=== PATIENT | female | born 1945 | race American Indian/Alaskan Native ===

== ENCOUNTER 2019-09-13 21:11 | Emergency (ER) | payer MEDICARE, SELFPAY ==
[2019-09-13 21:16] VITALS: BP 167/66; PULSE 58; RESP 13; TEMP 36.7; O2SAT 98
--- NOTE | 2019-09-13 21:27 | ED.GENADULT ---
HPI - General Adult General Chief complaint: Unspecified Stated complaint: ams Time Seen by Provider: 09/13/19 21:14 History of Present Illness HPI narrative: Brought in by EMS [facility] for altered mental status. She reportedly had an episode where she was difficult to arouse. Staff became concerned and called EMS. When they arrived she was initially lethargic, but quickly returned to baseline. On my evaluation she has no complaints. History limited by dementia. oriented x1. Related Data Home Medications Medication Instructions Recorded Confirmed acetaminophen 500 mg capsule 500 mg PO Q6H PRN 05/21/19 alendronate 70 mg tablet 70 mg PO .COMPLEX 05/21/19 aspirin 81 mg tablet,delayed 81 mg PO DAILY 05/21/19 release cholecalciferol (vitamin D3) 50 50 mcg PO DAILY 05/21/19 mcg (2,000 unit) capsule citalopram 20 mg tablet 20 mg PO DAILY 05/21/19 clopidogrel 75 mg tablet 75 mg PO .COMPLEX 05/21/19 docusate sodium 100 mg capsule 100 mg PO BID PRN 05/21/19 famotidine 20 mg tablet 20 mg PO .COMPLEX 05/21/19 ferrous sulfate 325 mg (65 mg 325 mg PO .COMPLEX 05/21/19 iron) tablet folic acid 1 mg tablet 1 mg PO .COMPLEX 05/21/19 guaifenesin 600 mg tablet, 600 mg PO BID 05/21/19 extended release 12 hr hydroxyzine pamoate 25 mg capsule See Rx Instructions .ROUTE 05/21/19 .COMPLEX PRN loratadine 10 mg tablet 10 mg PO .COMPLEX 05/21/19 melatonin 5 mg tablet See Rx Instructions .ROUTE .COMPLEX 05/21/19 memantine 10 mg tablet See Rx Instructions PO BID 05/21/19 multivitamin-iron 27 mg-folic acid See Rx Instructions PO .COMPLEX 05/21/19 400 mcg-calcium and minerals tablet tablet olanzapine 5 mg tablet 5 mg PO .COMPLEX 05/21/19 oxybutynin chloride 10 mg 10 mg PO .COMPLEX 05/21/19 tablet,extended release 24 hr rivastigmine tartrate 6 mg capsule 6 mg PO .COMPLEX 05/21/19 Allergies Allergy/AdvReac Type Severity Reaction Status Date / Time No Known Allergies Allergy Unverified 08/03/18 20:41 Review of Systems Review of Systems: ROS unobtainable: Yes unobtainable due to mental status PMFSH Past Medical History Medical History Depression HTN (hypertension) Hyperlipidemia Social History Social History Smoking status: Never smoker Alcohol intake: never Exam Const: General: no acute distress and alert Nutritional Appearance: well nourished Other: Oriented to self HENMT: Head: normal to inspection Eyes: Pupils: Equal, round and reactive pupils present Resp: Effort & Inspection: normal respiratory effort Auscultation: clear to auscultation bilaterally Cardio: Rate: regular rate Rhythm: regular rhythm GI: GI Palp: Yes Soft to palpation and No Tenderness to palpation present (GI) Skin: General skin exam: normal color Neuro: General: moves all extremities and CN's II-XI intact bilaterally Speech: normal speech Course Vital Signs Vital signs: Vital Signs Temperature 36.7 C 09/13/19 21:16 Pulse Rate 58 L 09/13/19 21:16 Respiratory Rate 13 09/13/19 21:16 Blood Pressure 167/66 H 09/13/19 21:16 Pulse Oximetry 98 09/13/19 21:16 Temperature 36.7 C 09/13/19 21:16 Pulse Rate 58 L 09/13/19 21:16 Respiratory Rate 13 09/13/19 21:16 Blood Pressure 167/66 H 09/13/19 21:16 Pulse Oximetry 98 09/13/19 21:16 Medical Decision Making MDM Narrative Medical decision making narrative: Currently she seems to be at her baseline without complaint. UA concerning for infection. Will start Cipro. Medical Records Medical records reviewed: Yes I reviewed the patient's medical records. Vital Signs Vital Signs: Vital Signs Temperature 36.7 C 09/13/19 21:16 Pulse Rate 58 L 09/13/19 21:16 Respiratory Rate 13 09/13/19 21:16 Blood Pressure 167/66 H 09/13/19 21:16 Pulse Oximetry 98 09/13/19 21:16 Temperature 36.7 C 09/13/19 21:16
[2019-09-13 23:06] LABS: Add Urine Microscopic? YES; Appearance Urine Clear (Clear); Bacteria Urine Trace /hpf; Bilirubin Urine Negative (Negative); Blood Urine Negative (Negative); Color Urine Yellow (Yellow); Glucose Urine UA Negative (Negative); Ketones Urine Negative (Negative); Leukocyte Esterase Ur 1+ LEU/UL (Negative); Mucus Urine Rare /lpf; Nitrate Urine Negative (Negative); Protein Urine Negative (Negative); Specific Grav Ur 1.016 (1.001-1.035); Urobilinogen Urine Negative mg/dL (<2.0)
[2019-09-14] MEDS: CIPROFLOXACIN 500 MG TAB PO (00:09)
--- NOTE | 2019-09-14 01:42 | PC.NURSE ---
[facility] accepted transfer back to [place] ETA [id number]
--- NOTE | 2019-09-14 01:48 | PC.NURSE ---
Pt assisted to wheelchair and moved rooms to make sure the sitter here would be able to watch her. Pt now in rm 9
--- NOTE | 2019-09-14 03:02 | PC.NURSE ---
[facility] has arrived to Transfer pt back to [place]
== END 2019-09-14 03:11 ==
PROVIDERS: Emergency Provider Emergency Medicine; PCP Emergency Medicine
DX: N39.0 Urinary tract infection, site not specified (principal); Z79.82 Long term (current) use of aspirin; F32.9 Major depressive disorder, single episode, unspecified; I10 Essential (primary) hypertension; E78.5 Hyperlipidemia, unspecified
CPT/HCPCS: 51701; 81001; 87077; 87086; 87088; 87186; 99283; A9270

== ENCOUNTER 2020-10-22 15:12 | Outpatient (CLI) | payer MEDICARE, SELFPAY ==
[2020-10-22 15:34] LABS: Basophils Absolute Auto 0.1 K/mm3 (0.0-0.1); Basophils Percent Auto 0.9 % (0.2-1.2); Eosinophils Absolute Auto 0.2 K/mm3 (0-0.3); Eosinophils Percent Auto 3.2 % (0-4.4); Hematocrit 36.7 % (37.0-47.0); Hemoglobin 11.7 g/dL (12.0-15.0); Immature Granulocyte Absolute 0.02 K/mm3 (0.00-0.031); Immature Granulocyte Percent A 0.3 % (0-0.5); Lymphocytes Absolute Auto 1.15 K/mm3 (0.9-3.2); Lymphocytes Percent Auto 18.2 % (18.3-44.2); Mean Corpuscular HGB Conc 31.9 g/dl (32-36); Mean Corpuscular Hemoglobin 29.7 pg (26-34); Mean Corpuscular Volume 93.1 fl (80-100); Mean Platelet Volume 9.9 fl (7.4-10.4); Monocytes Absolute Auto 0.4 K/mm3 (0.1-0.6); Monocytes Percent Auto 6.8 % (2.6-8.5); Neutrophils Absolute Auto 4.5 K/mm3 (1.3-6.7); Neutrophils Percent Auto 70.6 % (45.5-73.1); Platelet Count Result 736 k/mm3 (150-375); Red Blood Count 3.94 M/mm3 (4.2-5.4); White Blood Count 6.3 K/mm3 (4.5-10.0)
[2020-10-22 15:46] LABS: Alanine Aminotransferase 18 U/L (4-35); Albumin Level 4.3 g/dL (3.5-5.1); Alkaline Phosphatase 80 U/L (38-126); Anion Gap 9 mmol/L (8-16); Aspartate Amino Transferase 31 U/L (14-36); Bilirubin,Total 0.5 mg/dL (0.2-1.3); Blood Urea Nitrogen 30 mg/dL (7-17); CRP < 0.5 mg/dL (<1.0); Carbon Dioxide 28 mmol/L (22-30); Chloride 105 mmol/L (98-107); Estimated Glomerular Filt Rate > 60; Glucose 116 mg/dL (65-110); Sodium 142 mmol/L (137-145)
[2020-10-22 16:14] LABS: Iron 40 ug/dL (37-170)
[2020-10-22 16:21] LABS: Erythrocyte Sedimentation Rate 3 mm/hr (0-20)
[2020-10-22 16:24] LABS: Percent Iron Saturation 15 % (20-50)
[2020-10-29 16:00] LABS: CALR Exon 9 Mutation Not Detected (Not Detected); CSF3R Exon 14/17 Mutation Not Detected (Not Detected); Clinical Indication Not Given; JAK2 Exon 12 Mutation Not Detected (Not Detected); JAK2 V617F Mutation Not Detected (Not Detected); MPL Exon 10 Mutation Not Detected (Not Detected); Specimen Source Blood
== END 2020-10-22 15:13 | disposition home or self-care (01) ==
LOC: ANHLAB 15:16
PROVIDERS: PCP Emergency Medicine; Visit Provider Internal Medicine Hematology & Oncology
DX: R79.89 Other specified abnormal findings of blood chemistry (principal)
CPT/HCPCS: 36415; 80053; 81219; 81270; 81402; 81403; 81479; 83540; 83550; 85025; 85652; 86140

== ENCOUNTER 2021-02-03 13:45 | Outpatient (CLI) | payer MEDICARE, SELFPAY ==
[2021-02-03 14:12] LABS: Basophils Absolute Auto 0.1 K/mm3 (0.0-0.1); Basophils Percent Auto 0.8 % (0.2-1.2); Eosinophils Absolute Auto 0.2 K/mm3 (0-0.3); Eosinophils Percent Auto 2.3 % (0-4.4); Hematocrit 34.7 % (37.0-47.0); Hemoglobin 10.6 g/dL (12.0-15.0); Immature Granulocyte Absolute 0.02 K/mm3 (0.00-0.031); Immature Granulocyte Percent A 0.3 % (0-0.5); Lymphocytes Percent Auto 15.4 % (18.3-44.2); Mean Corpuscular HGB Conc 30.5 g/dl (32-36); Mean Corpuscular Hemoglobin 29.4 pg (26-34); Mean Corpuscular Volume 96.4 fl (80-100); Mean Platelet Volume 9.8 fl (7.4-10.4); Monocytes Absolute Auto 0.4 K/mm3 (0.1-0.6); Monocytes Percent Auto 6.3 % (2.6-8.5); Neutrophils Absolute Auto 4.9 K/mm3 (1.3-6.7); Neutrophils Percent Auto 74.9 % (45.5-73.1); Platelet Count Result 818 k/mm3 (150-375); Red Cell Distribution Width 13.5 % (11.5-14.5); White Blood Count 6.5 K/mm3 (4.5-10.0)
[2021-02-03 14:16] LABS: Blood Urea Nitrogen 23 mg/dL (8-26); Carbon Dioxide 27 mmol/L (22-30); Chloride 102 mmol/L (98-109); Estimated Glomerular Filt Rate 54; Glucose 167 mg/dL (70-105); Potassium 4.4 mmol/L (3.5-4.9); Sodium 141 mmol/L (138-146)
[2021-02-03 15:47] LABS: Erythrocyte Sedimentation Rate 5 mm/hr (0-20)
[2021-02-03 16:21] LABS: Iron 56 ug/dL (37-170)
[2021-02-03 16:25] LABS: Alanine Aminotransferase 15 U/L (4-35); Albumin Level 4.1 g/dL (3.5-5.1); Alkaline Phosphatase 62 U/L (38-126); Anion Gap 8 mmol/L (8-16); Aspartate Amino Transferase 30 U/L (14-36); Bilirubin,Total 0.4 mg/dL (0.2-1.3); Blood Urea Nitrogen 23 mg/dL (7-17); CRP < 0.5 mg/dL (<1.0); Calcium 8.9 mg/dL (8.4-10.2); Carbon Dioxide 27 mmol/L (22-30); Chloride 105 mmol/L (98-107); Estimated Glomerular Filt Rate > 60; Glucose 158 mg/dL (65-110); Potassium 4.4 mmol/L (3.4-5.0); Sodium 140 mmol/L (137-145)
[2021-02-03 16:34] LABS: Percent Iron Saturation 18 % (20-50)
== END 2021-02-03 13:46 | disposition home or self-care (01) ==
LOC: ANHLAB 13:48
PROVIDERS: PCP Emergency Medicine; Visit Provider Internal Medicine Hematology & Oncology
DX: D75.838 Other thrombocytosis (principal); D50.9 Iron deficiency anemia, unspecified
CPT/HCPCS: 36415; 80048; 80053; 83540; 83550; 85025; 85652; 86140

== ENCOUNTER 2021-04-04 08:30 | Inpatient (IN) | payer MEDICARE, SELFPAY ==
--- NOTE | ~2021-04-04 | CT_ITS ---
EXAMINATION: CT pelvis wo con DATE: 04/04/2021 10:27 INDICATION: Right hip pain. TECHNIQUE: Computed tomography (CT) of the pelvis was performed without intravenous contrast. Automat ed exposure control and iterative reconstruction technique were employed. The dose-length product was 189.89 mGy-cm. COMPARISON: Pelvis and right hip radiographs 04/04/2021 FINDINGS: There is a 7.6 x 5.0 x 4.0 cm multiloculated cystic mass posterior to the uterus with invol vement of the myometrium. Bone alignment is normal. No acute fracture. There is an old healed fractur e of left femoral neck with fixation with 3 lag screws. There is osteonecrosis of left femoral head. There is moderate osteoarthritis of right hip and severe osteoarthritis of left hip. There are sclero tic lesions in the pelvis and proximal right femur, likely benign bone islands. There is enlargement of the right gluteus praveen muscle with surrounding fat stranding, consistent with hematoma. IMPRESSION: 1. Hematoma in the right gluteus praveen muscle. 2. Sclerotic lesions in the pelvis and proximal right femur, likely benign bone islands. 3. Left femoral head osteonecrosis status post healed femoral neck fracture with internal fixation. 4. Moderate osteoarthritis of right hip and severe osteoarthritis of left hip. 5. 7.6 cm multiloculated cystic mass centered posterior to the uterus with apparent involvement of th e myometrium. The differential diagnosis includes ovarian neoplasm, degenerated fibroid, and chronic hematoma. Pelvis MRI without and with contrast is recommended. Reviewed, dictated and finalized at location A. PHOTOGRAPHY SUPERVISOR IMPRESSION: 1. Hematoma in the right gluteus praveen muscle. 2. Sclerotic lesions in the pelvis and proximal right femur, likely benign bone islands. 3. Left femoral head osteonecrosis status post healed femoral neck fracture wit h internal fixation. 4. Moderate osteoarthritis of right hip and severe osteoarthritis of left hip. 5. 7.6 cm multiloculated cystic mass centered posterior to the uterus with appa rent involvement of the myometrium. The differential diagnosis includes ovarian neoplasm, degenerated fibroid, and chronic hematoma. Pelvis MRI without and wi th contrast is recommended.
--- NOTE | ~2021-04-04 | CT_ITS ---
EXAMINATION: CT brain wo con DATE: 04/04/2021 12:22 INDICATION: Fall. TECHNIQUE: Computed tomography (CT) of the head was performed without intravenous contrast. The mA wa s adjusted according to patient size. Iterative reconstruction technique was employed. The dose-lengt h product was 605.33 mGy-cm. COMPARISON: Head CT 08/05/2018 FINDINGS: There is a large area of chronic encephalomalacia involving left temporal parietal occipita l region. There is an old infarct in right frontal lobe. There are scattered areas of low attenuation in the cerebral white matter. There is no intracranial hemorrhage, acute infarction, or abnormal int racranial mass lesion. There is ex vacuo dilatation of trigone and occipital horn of left lateral oc tricle. The orbits are normal. There is mucosal thickening in the paranasal sinuses. The mastoid air cells are normal. There is a chronic deformity of the left nasal process of maxilla. IMPRESSION: 1. 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 Old infarct in left temporal parietal occipital region. 2. Stable extensive nonspecific cerebral white matter disease, which likely represents chronic small vessel ischemic disease. Reviewed, dictated and finalized at location A. SCHOOL FRENCH TEACHER IMPRESSION: 1. 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 Old infarct in left temporal parietal occ ipital region. 2. Stable extensive nonspecific cerebral white matter disease, which likely rep resents chronic small vessel ischemic disease.
--- NOTE | ~2021-04-04 | XR_ITS ---
EXAMINATION: XR femur RT min 2V DATE: 04/04/2021 08:58 INDICATION: Right thigh pain. Fall. TECHNIQUE: 2 views of right femur on 4 radiographs were obtained. COMPARISON: None. FINDINGS: Bone alignment is normal. No fracture. There is mild right knee osteoarthritis. There is mo derate right hip osteoarthritis. There is a 1.6 cm chronic lesion in intertrochanteric region of prox imal right femur. IMPRESSION: 1. No fracture. 2. Sclerotic lesion in proximal right femur, which may be a benign bone island or metastatic disease. Consider bone scan. 3. Polyarticular osteoarthritis. Reviewed, dictated and finalized at location A. REPAIRMAN
--- NOTE | ~2021-04-04 | XR_ITS ---
EXAMINATION: XR hip RT 2V w AP pelvis DATE: 04/04/2021 08:58 INDICATION: Right hip pain. Fall. TECHNIQUE: An anteroposterior view of the pelvis and 2 views of right hip were obtained. COMPARISON: None. FINDINGS: There is lumbar levoscoliosis and severe spondylosis. There is an old healed fracture of le ft femoral neck with internal fixation with 3 lag screws. There is a 1.8 cm sclerotic lesion in the i ntertrochanteric region of proximal right femur. There is a 6 mm sclerotic lesion in left ilium. Ther e is moderate osteoarthritis of the hips. IMPRESSION: 1. Moderate osteoarthritis of the hips. 2. Sclerotic lesions in right femur and left ilium, consistent with benign bone islands versus metast atic disease. Consider bone scan. Reviewed, dictated and finalized at location A. IRONER IMPRESSION: 1. Moderate osteoarthritis of the hips. 2. Sclerotic lesions in right femur and left ilium, consistent with benign bone islands versus metastatic disease. Consider bone scan.
--- NOTE | ~2021-04-04 | XR_ITS ---
EXAMINATION: XR tibia fibula RT 2V DATE: 04/04/2021 10:10 INDICATION: Right lower leg injury. TECHNIQUE: 2 views of right tibia and fibula on 3 radiographs were obtained. COMPARISON: None. FINDINGS: Bone alignment is normal. There is an old healed fracture of neck of proximal fibula. There is a nondisplaced fracture of proximal tip of fibula. Joint spaces are normal. There is lateral calf and thigh soft tissue swelling. IMPRESSION: 1. Age-indeterminate nondisplaced fracture of proximal tip of fibula. Reviewed, dictated and finalized at location A. CE RECORDS CLERK
[2021-04-04 08:29] VITALS: BP 118/58; PULSE 91; RESP 18; TEMP 36.7; O2SAT 96
[2021-04-04 09:27] VITALS: BP 116/72; PULSE 87; RESP 18; O2SAT 97
[2021-04-04 11:14] VITALS: BP 98/55; PULSE 78; RESP 18; O2SAT 99
--- NOTE | 2021-04-04 12:06 | ED.LOWEXIN ---
HPI - Extremity Injury (Lower) General Chief Complaint: Extremity Injury, Lower Stated Complaint: fall Source: RN notes reviewed History of Present Illness HPI Narrative: Patient presents emergency department from [facility] via EMS for fall per staff the patient fell 2:00 this morning. Patient at that time had no complaints of pain with back to bed but this morning would not place weight on the right leg. Per the staff the patient did fall 4 days ago and this is why there is bruising on the right leg. Patient currently is awake alert x1 in bed which is at her baseline with history of dementia she denies any pain at this time at that she is able to move all of her extremities without pain she denies any chest pain or shortness of breath Related Data Home Medications Medication Instructions Recorded Confirmed acetaminophen 500 mg capsule 500 mg PO Q6H PRN 05/21/19 03/11/21 citalopram 20 mg tablet 20 mg PO DAILY 05/21/19 03/11/21 memantine 10 mg tablet See Rx Instructions PO BID 05/21/19 03/11/21 olanzapine 5 mg tablet 5 mg PO .COMPLEX 05/21/19 03/11/21 rivastigmine tartrate 6 mg capsule 6 mg PO .COMPLEX 05/21/19 03/11/21 allopurinol 300 mg tablet 150 mg PO DAILY 03/11/21 03/11/21 ascorbate calcium (vitamin C) 500 500 mg PO DAILY 03/11/21 03/11/21 mg tablet hydroxyurea 500 mg capsule 500 mg PO BID 03/11/21 03/11/21 hydroxyzine HCl 25 mg PO DAILY 04/04/21 Allergies Allergy/AdvReac Type Severity Reaction Status Date / Time No Known Allergies Allergy Verified 04/04/21 08:46 Review of Systems Review of Systems: Gen.: Denies fevers or chills ENT: Denies congestion Respiratory: Denies shortness of breath CV: Denies chest pain GI: Denies abdominal pain nausea, emesis Musculoskeletal: Denies back pain or muscle pain Neuro: Denies headache Skin: Denies rash Except as documented, all other systems reviewed and negative [facility] Past Medical History Medical History (Updated 04/04/21 @ 13:16 by Tony Cheng DO) Dementia Depression HTN (hypertension) Hyperlipidemia Social History Social History Smoking status: Never smoker Alcohol intake: never Exam Narrative: APPEARANCE: No acute distress, nontoxic, resting in bed EYES: EOMI HEENT: Normocephalic, atraumatic, OMM RESPIRATORY: No respiratory distress Clear to auscultation bilaterally with no rhonchi wheezing or rales. CARDIOVASCULAR: Regular rate and rhythm without murmurs rubs or gallops. ABDOMINAL: Soft, nontender, nondistended, no rebound or guarding MUSCULOSKELETAl: Moves all extremities. No clubbing, cyanosis or edema. Ecchymosis from the right buttocks down to the right calf over the lateral aspect of the leg, no tenderness over the right hip knee or ankle with full range of motion of all dorsalis pedis pulse 2+ neurovascular intact no tenderness of bilateral pressure in his left lower extremity NEURO: Awake and alert x 1. Following commands, speech normal, no focal deficits SKIN:: Warm, dry. No rashes lesions or abrasions PSYCHIATRIC: Normal affect/mood, Course Course Emergency Course: Attempted to road test patient will not place weight on right leg light additional imaging Discussed with Dr. Jacobson presentation work-up he states he placed a knee immobilizer on the patient she can be light weightbearing and walking with a walk Discussed with case management the patient is currently at [facility] care they are not able to handle as the patient is not placing in the right leg will admit with PT OT for possible placement Discussed with Dr. Oscar presentation work-up agrees with admission Discussed with patient and family results of workup and diagnosis. Discussed need for admission. Patient and family understand and agree to current treatment plan Vital Signs Vital signs: Vital Signs Temperature 98.1 F 04/04/21 08:29 Pulse Rate 91 04/04/21 08:29 Respiratory Rate 18 04/04/21 08:29 Blood Pre
[2021-04-04 12:22] LABS: Basophils Percent Auto 0.1 % (0.2-1.2); Hematocrit 26.7 % (37.0-47.0); Hemoglobin 8.6 g/dL (12.0-15.0); Immature Granulocyte Absolute 0.09 K/mm3 (0.00-0.031); Immature Granulocyte Percent A 1.1 % (0-0.5); Lymphocytes Percent Auto 8.3 % (18.3-44.2); Mean Corpuscular HGB Conc 32.2 g/dl (32-36); Mean Corpuscular Hemoglobin 31.6 pg (26-34); Mean Corpuscular Volume 98.2 fl (80-100); Mean Platelet Volume 9.5 fl (7.4-10.4); Monocytes Absolute Auto 0.6 K/mm3 (0.1-0.6); Monocytes Percent Auto 6.6 % (2.6-8.5); Neutrophils Absolute Auto 7.1 K/mm3 (1.3-6.7); Neutrophils Percent Auto 83.9 % (45.5-73.1); Platelet Count Result 682 k/mm3 (150-375); Red Blood Count 2.72 M/mm3 (4.2-5.4); Red Cell Distribution Width 18.5 % (11.5-14.5); White Blood Count 8.5 K/mm3 (4.5-10.0)
[2021-04-04 12:31] LABS: Alanine Aminotransferase 20 U/L (4-35); Albumin Level 3.5 g/dL (3.5-5.1); Alkaline Phosphatase 61 U/L (38-126); Anion Gap 5 mmol/L (8-16); Aspartate Amino Transferase 47 U/L (14-36); Bilirubin,Total 0.7 mg/dL (0.2-1.3); Blood Urea Nitrogen 30 mg/dL (7-17); Calcium 8.2 mg/dL (8.4-10.2); Carbon Dioxide 29 mmol/L (22-30); Chloride 102 mmol/L (98-107); Estimated CRCL calculation 42 ml/min; Estimated Glomerular Filt Rate > 60; Glucose 123 mg/dL (65-110); Potassium 4.1 mmol/L (3.4-5.0); Sodium 136 mmol/L (137-145)
[2021-04-04 12:33] LABS: INR 1.3; Partial Thromboplastin Time 30.3 SECONDS (22.3-36.8); Prothrombin Time 15.9 Seconds (11.1-14.7)
--- NOTE | 2021-04-04 13:44 | PCCCNOTE ---
Addendum entered by Stephanie Matias RN 04/04/21 17:04: Facesheet/ H[facility]P [facility], PT/OT evals will be sent to facilities once completed. Addendum entered by Stephanie Matias RN 04/04/21 16:51: Called to Legal Guardian/ POA Kailash Dixon, she is with [facility]- agreeable to SNF referrals for rehab. Patient is vaccinated and would like facilities that have the most vaccinated patients. Power Chisel Operator advises that some facilities are only taking patients that have had the vaccine. Kailash is agreeable to [facility] and [facility]. Out of local SNF's, guardian Kailash does not want patient to be referred to [facility]. Agreeable to [facility] at this time. OBRA request called. Referral sent to [place] kalyan Prajapati [facility]. Original Note: Called by ED to discuss contact and return to [facility]. Patient is non weight bearing with fibula fracture. Called to [facility], spoke with Michelle, per Michelle she can not be more than an assist of 1 to return. Spoke with ED provider Dr. Cheng, Dr. Cheng to admit for fracture PT/OT and rehab placement. Called back to Michelle and advised of admission.
--- NOTE | 2021-04-04 14:23 | PCPTNOTE ---
Spoke with MD regarding pt's status. Pt is WBAT with knee immobilizer. She will be admitted to a room. Therapy services will complete assessment once she is transfers to the floor.
--- NOTE | 2021-04-04 14:29 | PCOTNOTE ---
Spoke with MD regarding pt's status. Pt is WBAT with knee immobilizer. She will be admitted to a room. Therapy services will complete evaluation once she is transfers to the floor.
--- NOTE | 2021-04-04 14:45 | PM.IMHP ---
H&P: HPI History of Present Illness Date/Time: 04/04/21 14:45 Chief Complaint: Lower extremity injury Narrative: Chelsea Palomino is a 75 year old lady with a past medical history significant for HTN, HLD and dementia who has been admitted after presenting to the ED via EMS from a memory care center. The patient is a poor historian, thus history obtained per chart review and ED physician report. Apparently she sustain a fall early this morning around 0200. She had no significant complaints of pain and went back to bed. When awakened this morning, she was unable to bear weight on her right lower extremity per nursing staff. Nursing staff also reported a fall 4 days ago with noted bruising extending from lateral side of right thigh to the calf. The patient appeared comfortable during exam and moves all extremities. ED evaluation included and revealed: Na+ 136; BUN 30; BG 123; H/H 8.6/26.7; PLT 682. Head CT with no acute findings; pelvic CT showed a right gluteus hematoma; moderate OA of right hip and severe OA of left hip. Incidental finding-->5. 7.6 cm multiloculated cystic mass centered posterior to the uterus with apparent involvement of the myometrium. The differential diagnosis includes ovarian neoplasm, degenerated fibroid, and chronic hematoma. Pelvis MRI without and with contrast is recommended. Dr. Sheth was contacted and recommended a knee immobilizer; light weight bearing with a walker and no surgical intervention. She will need PT/OT and rehab placement. The patient has been admitted to observation status. Review of Systems Review of Systems: ROS unobtainable: Yes unobtainable due to mental status PMFSH Past Medical History Medical History Dementia Depression HTN (hypertension) Hyperlipidemia Social History Social History Smoking status: Never smoker Alcohol intake: never Meds Home Medications and Allergies Home Medications Medication Instructions Recorded Confirmed Type acetaminophen 500 mg capsule 500 mg PO Q6H PRN 05/21/19 03/11/21 History citalopram 20 mg tablet 20 mg PO DAILY 05/21/19 03/11/21 History memantine 10 mg tablet See Rx Instructions PO BID 05/21/19 03/11/21 History olanzapine 5 mg tablet 5 mg PO .COMPLEX 05/21/19 03/11/21 History rivastigmine tartrate 6 mg capsule 6 mg PO .COMPLEX 05/21/19 03/11/21 History alendronate 70 mg tablet 70 mg PO .COMPLEX #4 tablet 11/25/19 03/11/21 Rx clopidogrel 75 mg tablet 75 mg PO .COMPLEX #90 tablet 04/30/20 03/11/21 Rx famotidine 20 mg tablet 20 mg PO .COMPLEX #90 tablet 04/30/20 03/11/21 Rx folic acid 1 mg tablet 1 mg PO .COMPLEX #90 tablet 04/30/20 03/11/21 Rx oxybutynin chloride 10 mg See Rx Instructions .ROUTE 04/30/20 03/11/21 Rx tablet,extended release 24 hr .COMPLEX #90 tablet simvastatin 10 mg tablet 10 mg PO .COMPLEX #90 tablet 04/30/20 03/11/21 Rx aspirin 81 mg chewable tablet See Rx Instructions .ROUTE 06/13/20 03/11/21 Rx .COMPLEX #28 tablet ferrous sulfate 325 mg (65 mg See Rx Instructions .ROUTE 06/13/20 03/11/21 Rx iron) tablet .COMPLEX #28 tablet guaifenesin 600 mg tablet, See Rx Instructions .ROUTE 06/13/20 03/11/21 Rx extended release 12 hr .COMPLEX #56 tablet loratadine 10 mg tablet See Rx Instructions .ROUTE 06/13/20 03/11/21 Rx .COMPLEX #28 tablet multivitamin-iron 9 mg-folic acid See Rx Instructions .ROUTE 06/13/20 03/11/21 Rx 400 mcg-calcium and minerals tablet .COMPLEX #28 tablet melatonin 5 mg tablet See Rx Instructions .ROUTE 08/13/20 03/11/21 Rx .COMPLEX #28 tablet cholecalciferol (vitamin D3) 50 See Rx Instructions .ROUTE 12/19/20 03/11/21 Rx mcg (2,000 unit) tablet .COMPLEX #90 tablet allopurinol 300 mg tablet 150 mg PO DAILY 03/11/21 03/11/21 History ascorbate calcium (vitamin C) 500 500 mg PO DAILY 03/11/21 03/11/21 History mg tablet hydroxyurea 500 mg capsule 500 mg PO BID 03/11/21 03/11/21 His
[2021-04-04 17:00] VITALS: BP 111/48; PULSE 84; RESP 20; TEMP 36.9; O2SAT 92
--- NOTE | 2021-04-04 17:10 | ADMGEN ---
This patient, Chelsea Palomino, was admitted to 2 Medical Room 260-. Patient/family oriented to hospital policies and general routines including ID bracelet, bed and alarms, visiting hours, pain management, procedures, bathroom and other care routines, personal items, smoking policy, room service/diet, and visiting hours. Information on how to activate the Rapid Response Team has been discussed. Patient/Family are encouraged to report perceived risks to care and to ask questions if they do not understand what they are told or what they should do.
[2021-04-04] MEDS: HYDROXYUREA (*CHEMO) 500 MG CAPSULE PO (17:52)
[2021-04-04] MEDS: RIVASTIGMINE TARTRATE 1.5 MG CAPSULE 6 MG PO (17:52)
[2021-04-04] MEDS: MEMANTINE 10 MG TABLET PO (17:53)
[2021-04-04 20:00] VITALS: O2SAT 91
[2021-04-04 20:47] VITALS: BP 96/48; PULSE 79; RESP 18; TEMP 35.8; O2SAT 91
[2021-04-04] MEDS: OLANZapine 5 MG TABLET PO (21:26)
[2021-04-04] MEDS: MELATONIN 5 MG TABLET BY MOUTH (21:26)
[2021-04-04] MEDS: SIMVASTATIN 10 MG TABLET PO (21:26)
[2021-04-05 04:38] VITALS: BP 114/48; PULSE 71; RESP 16; TEMP 36.1; O2SAT 91
[2021-04-05 05:33] LABS: Basophils Percent Auto 0.3 % (0.2-1.2); Eosinophils Percent Auto 0.6 % (0-4.4); Hematocrit 25.7 % (37.0-47.0); Hemoglobin 8.1 g/dL (12.0-15.0); Immature Granulocyte Absolute 0.06 K/mm3 (0.00-0.031); Lymphocytes Absolute Auto 0.88 K/mm3 (0.9-3.2); Lymphocytes Percent Auto 14.3 % (18.3-44.2); Mean Corpuscular HGB Conc 31.5 g/dl (32-36); Mean Corpuscular Volume 98.5 fl (80-100); Monocytes Absolute Auto 0.6 K/mm3 (0.1-0.6); Monocytes Percent Auto 9.6 % (2.6-8.5); Neutrophils Absolute Auto 4.6 K/mm3 (1.3-6.7); Neutrophils Percent Auto 74.2 % (45.5-73.1); Platelet Count Result 532 k/mm3 (150-375); Red Blood Count 2.61 M/mm3 (4.2-5.4); Red Cell Distribution Width 18.7 % (11.5-14.5); White Blood Count 6.2 K/mm3 (4.5-10.0)
[2021-04-05 05:43] LABS: Anion Gap 4 mmol/L (8-16); Blood Urea Nitrogen 23 mg/dL (7-17); Calcium 7.8 mg/dL (8.4-10.2); Carbon Dioxide 29 mmol/L (22-30); Chloride 103 mmol/L (98-107); Estimated CRCL calculation 48 ml/min; Estimated Glomerular Filt Rate > 60; Glucose 127 mg/dL (65-110); Potassium 3.9 mmol/L (3.4-5.0); Sodium 136 mmol/L (137-145)
[2021-04-05 05:45] LABS: Iron 13 ug/dL (37-170)
[2021-04-05 05:54] LABS: Percent Iron Saturation 6 % (20-50)
[2021-04-05] MEDS: FOLIC ACID 1 MG TABLET PO (09:51)
[2021-04-05] MEDS: MEMANTINE 10 MG TABLET PO ×2 (09:52→17:17)
[2021-04-05] MEDS: ASCORBIC ACID 500 MG TABLET PO (09:52)
[2021-04-05] MEDS: HYDROXYUREA (*CHEMO) 500 MG CAPSULE PO ×2 (09:52→17:17)
[2021-04-05] MEDS: CITALOPRAM HYDROBROMIDE 20 MG TABLET PO (09:52)
[2021-04-05] MEDS: FERROUS SULFATE 324 MG TABLET BY MOUTH (09:52)
[2021-04-05] MEDS: ASPIRIN 81 MG CHEWABLE TABLET BY MOUTH (09:52)
[2021-04-05] MEDS: RIVASTIGMINE TARTRATE 1.5 MG CAPSULE 6 MG PO ×2 (09:52→17:17)
[2021-04-05] MEDS: allopurinoL 150 MG TABLET PO (09:52)
[2021-04-05] MEDS: FAMOTIDINE 20 MG TABLET PO (09:52)
[2021-04-05] MEDS: ENOXAPARIN 40 MG/0.4 ML SYRINGE SUB-Q (09:53)
--- NOTE | 2021-04-05 11:37 | PM.CNOR ---
Assessment and Plan Additional Plan patient is a 75-year-old female who was admitted through the emergency room with inability to ambulate. She has severe dementia and cannot communicate or respond to commands. She is alert and very pleasant. Her ER history was that she had fallen that day and could not get up or walk and she had fallen 4 days earlier and had development of ecchymosis over the posterior proximal the distal thigh on the right. Her past medical history is significant for thrombocytosis for which he takes hydroxyurea. Her platelets are in the 027158 range. She takes Plavix and baby aspirin. She has depression and the dementia. She has history of osteoporosis takes Fosamax. History of left femoral neck fracture treated with screw fixation. 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 A hematoma in the right gluteus praveen was noted. She had tib-fib x-rays on the right which showed a fibular neck fracture with mature callus that looks like a chronic healed fibular neck fracture on my review of the images. Physical exam: On exam today she had just walked around with a walker with the physical therapist. She takes short steps but but showed no signs of discomfort no grimace no limp in fact. She required more assistance sitting up from a supine position and has great difficulty following any commands. I helped her back into bed and she laid down and had no discomfort with this. She has a large area of ecchymosis from the inferior right gluteal region to the posterior aspect of her right knee. The gluteal region was mildly tender. I could not get her to raise her leg on command to see if she could lift the leg against the weight of gravity but at the end of the exam she saw that I was going to put her sock back on the right foot and lifted her right leg up in the air without difficulty which is encouraging. Also, she specifically showed no signs of having any tenderness over the lateral proximal calf where the fibular neck fracture which shown to be on the x-rays. There is no swelling or ecchymosis in this area. She had no other areas of tenderness. She has a 2+ dorsalis pedis pulse. I could get her to wiggle her toes up and down on command because she does not follow commands. Flexion of her right hip to 80? did cause discomfort although she could not tell me where but she did react to it a bit. That is consistent with the osteoarthritis that she has in the right hip and the strain that would put on the gluteus praveen which has a hematoma. Impression based on the fact that she was able to walk around the room without any sign of distress or discomfort or limp slot she has the walker, I think it is unlikely that she has an acute fracture at this time. She is at risk for fracture such as femoral neck fracture. The CT scan did not show evidence of fracture pelvis or proximal femur but it is still possible she could have a microtrabecular fracture. The fact that she lifted her right leg up in the air while supine for me to put her sock on and the fact that she can walk around without showing any signs of discomfort today argues against occult fracture. I believe the reason she was having difficulty ambulating and unwilling to ambulate is likely related to the intramuscular hematoma of her right gluteus praveen specifically. Treatment for that is symptomatic and should resolve over time. We had her placed in a knee immobilizer on the right leg to support the fibular neck fracture but since it is nontender and chronic I will discontinue the knee immobilizer and physical therapy can work with her. Since she is mobilizing, I do not think she needs any additional specific DVT prophylaxis other than
--- NOTE | 2021-04-05 13:00 | PM.IMPN ---
Progress Note: A&P Assessment and Plan (1) Closed fracture of fibula, proximal, right: Code(s): S82.831A - Other fracture of upper and lower end of right fibula, initial encounter for closed fracture Status: Acute Assessment and Plan: CT imaging noted above Knee immobilizer with light weight bearing with a walker, Ortho consulted and to follow, no surgical intervention PT/OT Will need rehab, consult [facility] DC the immobilizer as patient has no pain and walks well with the walker (2) Fall: Code(s): W19.XXXA - Unspecified fall, initial encounter Status: Acute Assessment and Plan: PT/OT Fall precautions (3) Hematoma of right lower leg: Code(s): S80.11XA - Contusion of right lower leg, initial encounter Status: Acute Assessment and Plan: Supportive care Ice pack, analgecis (4) Dementia: Code(s): F03.90 - Unspecified dementia without behavioral disturbance Status: Acute Assessment and Plan: Resume home meds Supporitve care (5) Thrombocytosis: Code(s): D47.3 - Essential (hemorrhagic) thrombocythemia Status: Acute Assessment and Plan: Appear chronic base on lab hx (6) HTN (hypertension): Qualifiers: Hypertension type: essential hypertension Qualified Code(s): I10 - Essential (primary) hypertension Code(s): I10 - Essential (primary) hypertension Status: Acute Assessment and Plan: BP soft No home meds Monitor (7) Hyperlipidemia: Qualifiers: Hyperlipidemia type: mixed hyperlipidemia Qualified Code(s): E78.2 - Mixed hyperlipidemia Code(s): E78.5 - Hyperlipidemia, unspecified Status: Acute Assessment and Plan: Resume ASA, statin (8) Uterine mass: Code(s): N85.8 - Other specified noninflammatory disorders of uterus Status: Acute Assessment and Plan: Incidental finding on CT-->5. 7.6 cm multiloculated cystic mass centered posterior to the uterus with apparent involvement of the myometrium. The differential diagnosis includes ovarian neoplasm, degenerated fibroid, and chronic hematoma. Pelvis MRI without and with contrast is recommended. MRI of pelvis ordered (9) History of CVA (cerebrovascular accident): Code(s): Z86.73 - Personal history of transient ischemic attack (TIA), and cerebral infarction without residual deficits Status: Acute Assessment and Plan: Hx of CVA Continue ASA, statin Hold Plavix for now (10) Anemia: Code(s): D64.9 - Anemia, unspecified Status: Acute Assessment and Plan: Likely iron deficient Resume home supplement Check iron panel Transfuse if <7 Monitor Additional Plan Code status: DNR DVT Ppx: Lovenox Subjective Date/time seen: 04/05/21 1300 Interval history: Date/Time: 04/04/21 14:45 Chief Complaint: Lower extremity injury Narrative: Chelsea Palomino is a 75 year old lady with a past medical history significant for HTN, HLD and dementia who has been admitted after presenting to the ED via EMS from a [facility]. The patient is a poor historian, thus history obtained per chart review and ED physician report. Apparently she sustain a fall early this morning around 0200. She had no significant complaints of pain and went back to bed. When awakened this morning, she was unable to bear weight on her right lower extremity per nursing staff. Nursing staff also reported a fall 4 days ago with noted bruising extending from lateral side of right thigh to the calf. The patient appeared comfortable during exam and moves all extremities. ED evaluation included and revealed: Na+ 136; BUN 30; BG 123; H/H 8.6/26.7; PLT 682. Head CT with no acute findings; pelvic CT showed a right gluteus hematoma; moderate OA of right hip and severe OA of left hip. Incidental finding-->5. 7.6 cm multiloculated cystic mass centered posterior to the uterus with apparent involvement of the myometr
[2021-04-05 14:00] VITALS: BP 144/80; PULSE 95; RESP 16; TEMP 37.1; O2SAT 96
[2021-04-05 20:28] VITALS: BP 105/52; PULSE 83; RESP 18; TEMP 35.9; O2SAT 99
[2021-04-05] MEDS: MELATONIN 5 MG TABLET BY MOUTH (20:56)
[2021-04-05] MEDS: OLANZapine 5 MG TABLET PO (20:56)
[2021-04-05] MEDS: SIMVASTATIN 10 MG TABLET PO (20:56)
[2021-04-05 21:57] VITALS: BP 116/48; PULSE 103; RESP 17; TEMP 36.2; O2SAT 99
[2021-04-05 21:58] VITALS: BP 105/70
[2021-04-06 04:31] VITALS: BP 119/56; PULSE 71; RESP 16; TEMP 37.1; O2SAT 92
[2021-04-06] MEDS: ASPIRIN 81 MG CHEWABLE TABLET BY MOUTH (10:15)
[2021-04-06] MEDS: ASCORBIC ACID 500 MG TABLET PO (10:15)
[2021-04-06] MEDS: HYDROXYUREA (*CHEMO) 500 MG CAPSULE PO (10:15)
[2021-04-06] MEDS: CITALOPRAM HYDROBROMIDE 20 MG TABLET PO (10:15)
[2021-04-06] MEDS: FERROUS SULFATE 324 MG TABLET BY MOUTH (10:15)
[2021-04-06] MEDS: RIVASTIGMINE TARTRATE 1.5 MG CAPSULE 6 MG PO (10:16)
[2021-04-06] MEDS: MEMANTINE 10 MG TABLET PO (10:16)
[2021-04-06] MEDS: FAMOTIDINE 20 MG TABLET PO (10:16)
[2021-04-06] MEDS: FOLIC ACID 1 MG TABLET PO (10:16)
[2021-04-06] MEDS: allopurinoL 150 MG TABLET PO (10:16)
[2021-04-06] MEDS: ENOXAPARIN 40 MG/0.4 ML SYRINGE SUB-Q (10:16)
[2021-04-06 15:03] VITALS: BP 108/49; PULSE 80; RESP 16; TEMP 36.3; O2SAT 91
[2021-04-06 15:37] LABS: EDCOVIDSCREEN Negative (Negative)
--- NOTE | 2021-04-06 16:04 | PC.NURSE ---
This nurse called the patients Guardian Mary Eldon and informed her that due to the fact we do not have any medical history prior to 10 years the radiologist do not feel comfortable, and we would be hard pressed to find a radiologist or facility willing to perform an MRI on the patient without prior medical history. Per Mary she wished that the patient could get the imagining done but understands why she can't. A copy of the patients discharge was made in order for the guardian have a copy per her request. Report called to [facility]. discharged faxed to the facility as well.
--- NOTE | 2021-04-06 16:28 | PM.DS ---
DS: Admitting Diagnosis Discharge Date 04/06/2021 Admitting Diagnosis Closed fracture of fibula, proximal, right DS: Discharge Diagnosis Discharge Diagnosis (1) Closed fracture of fibula, proximal, right: Code(s): S82.831A - Other fracture of upper and lower end of right fibula, initial encounter for closed fracture Status: Acute Assessment and Plan: R/o, likely chronic CT imaging noted above Knee immobilizer removed Ortho consulted and to follow, no surgical intervention PT/OT Ortho DC the immobilizer as patient has no pain and walks well with the walker (2) Fall: Code(s): W19.XXXA - Unspecified fall, initial encounter Status: Acute Assessment and Plan: PT/OT Fall precautions (3) Hematoma of right lower leg: Code(s): S80.11XA - Contusion of right lower leg, initial encounter Status: Acute Assessment and Plan: Supportive care Ice pack, analgecis (4) Dementia: Code(s): F03.90 - Unspecified dementia without behavioral disturbance Status: Acute Assessment and Plan: Resume home meds Supporitve care (5) Thrombocytosis: Code(s): D47.3 - Essential (hemorrhagic) thrombocythemia Status: Acute Assessment and Plan: Appear chronic base on lab hx (6) HTN (hypertension): Qualifiers: Hypertension type: essential hypertension Qualified Code(s): I10 - Essential (primary) hypertension Code(s): I10 - Essential (primary) hypertension Status: Acute Assessment and Plan: BP soft No home meds Monitor (7) Hyperlipidemia: Qualifiers: Hyperlipidemia type: mixed hyperlipidemia Qualified Code(s): E78.2 - Mixed hyperlipidemia Code(s): E78.5 - Hyperlipidemia, unspecified Status: Acute Assessment and Plan: Resume ASA, statin (8) Uterine mass: Code(s): N85.8 - Other specified noninflammatory disorders of uterus Status: Acute Assessment and Plan: Incidental finding on CT-->5. 7.6 cm multiloculated cystic mass centered posterior to the uterus with apparent involvement of the myometrium. The differential diagnosis includes ovarian neoplasm, degenerated fibroid, and chronic hematoma. Pelvis MRI without and with contrast is recommended. MRI of pelvis recommended outpatient (9) History of CVA (cerebrovascular accident): Code(s): Z86.73 - Personal history of transient ischemic attack (TIA), and cerebral infarction without residual deficits Status: Acute Assessment and Plan: Hx of CVA Continue ASA, statin Hold Plavix for now (10) Anemia: Code(s): D64.9 - Anemia, unspecified Status: Acute Assessment and Plan: Likely iron deficient Resume home supplement Check iron panel Transfuse if <7 Monitor DS: Summary Hospital Course Hospital Course: Chelsea Palomino is a 75 year old lady with a past medical history significant for HTN, HLD and dementia who has been admitted after presenting to the ED via EMS from a [facility]. The patient is a poor historian, thus history obtained per chart review and ED physician report. Apparently she sustain a fall early this morning around 0200. She had no significant complaints of pain and went back to bed. When awakened this morning, she was unable to bear weight on her right lower extremity per nursing staff. Nursing staff also reported a fall 4 days ago with noted bruising extending from lateral side of right thigh to the calf. The patient appeared comfortable during exam and moves all extremities. ED evaluation included and revealed: Na+ 136; BUN 30; BG 123; H/H 8.6/26.7; PLT 682. Head CT with no acute findings; pelvic CT showed a right gluteus hematoma; moderate OA of right hip and severe OA of left hip. Incidental finding-->5. 7.6 cm multiloculated cystic mass centered posterior to the uterus with apparent involvement of the myometrium. The differential diagnosis includes ovarian neoplas
== END 2021-04-06 16:45 | DRG 605 ==
LOC: ANHED 13:16 → ANH3MEDSUR 14:31 → ANH2MED 15:38
PROVIDERS: Admitting Provider Internal Medicine; Emergency Provider Emergency Medicine; PCP Emergency Medicine; Visit Provider Nurse Practitioner Adult Health
DX: S70.11XA Contusion of right thigh, initial encounter (principal); S82.831A Other fracture of upper and lower end of right fibula, initial encounter for closed fracture; W19.XXXA Unspecified fall, initial encounter; M16.11 Unilateral primary osteoarthritis, right hip; F03.90 Unspecified dementia, unspecified severity, without behavioral disturbance, psychotic disturbance, mood disturbance, and anxiety; D75.839 Thrombocytosis, unspecified; Z20.822 Contact with and (suspected) exposure to COVID-19; I10 Essential (primary) hypertension; E78.2 Mixed hyperlipidemia; N85.8 Other specified noninflammatory disorders of uterus; D50.9 Iron deficiency anemia, unspecified; M81.0 Age-related osteoporosis without current pathological fracture; Z66 Do not resuscitate; Z86.73 Personal history of transient ischemic attack (TIA), and cerebral infarction without residual deficits; Z79.82 Long term (current) use of aspirin
CPT/HCPCS: 36415; 70450; 72192; 73502; 73552; 73590; 80048; 80053; 83540; 83550; 85025; 85610; 85730; 87426; 96372; 97162; 97165; 99285; A9270; C9803; G0378; J1650

== ENCOUNTER 2021-04-13 14:13 | Inpatient (IN) | payer MEDICARE, SELFPAY ==
[2021-04-13] VITALS (8 sets, daily range): BP systolic 127–159; BP diastolic 50–105; PULSE 62–100; RESP 16–18; TEMP 36.6–37.2; O2SAT 91–100; BMI 21.4
--- NOTE | ~2021-04-13 | MR_ITS ---
EXAMINATION: MR pelvis wo/w con DATE: 04/15/2021 13:03 INDICATION: Pelvic cystic mass. TECHNIQUE: Magnetic resonance imaging (MRI) of the pelvis was performed without and with 11 mL MultiH ance intravenous contrast. Sequences included coronal and axial T2-weighted SS-FSE, coronal and axial FS 2D-FIESTA, axial T1-weighted dual-echo FSPGR, and axial T1-weighted LAVA. Postcontrast axial T1-w eighted LAVA images were obtained. COMPARISON: Pelvis CT 04/04/2021 FINDINGS: There is diverticulosis of the colon without evidence of diverticulitis. Cholelithiasis is noted. The re are no dilated loops of bowel. There are diverticula of the bladder. There is a 7.5 x 5.6 cm multi loculated cystic mass with thin septa involving the posterior inferior uterus. No enhancing component . The ovaries are not identified. There are pins in proximal left femur. Again seen is hematoma invol ving the right gluteus praveen muscle and posterior right thigh. There is asymmetric subcutaneous geovani ma in the right thigh. There is edema in the mons pubis and presacral region. There is edema and some of the right hip adductor muscles, consistent with strains. There is a right-sided trochanteric burs itis. IMPRESSION: 1. 7.5 cm multiloculated cystic mass involving the posterior inferior uterus, likely benign, most lik liat large Nabothian cysts. 2. Hematoma again seen involving the right gluteus praveen muscle and posterior right thigh. Reviewed, dictated and finalized at location B. GROOMER IMPRESSION: 1. 7.5 cm multiloculated cystic mass involving the posterior inferior uterus, l ikely benign, most likely large Nabothian cysts. 2. Hematoma again seen involving the right gluteus praveen muscle and posterior right thigh.
--- NOTE | ~2021-04-13 | MR_ITS ---
EXAMINATION: MR brain/brain stem wo con DATE: 04/16/2021 13:08 INDICATION: Confusion. TECHNIQUE: Magnetic resonance imaging (MRI) of the brain and brainstem was performed without intraven ous contrast. Sequences included sagittal and axial T1-weighted FSE, axial diffusion-weighted FS EPI, axial T2*-weighted GRE, axial T2-weighted FLAIR Propeller, and axial T2-weighted Propeller. Apparent diffusion coefficient (ADC) maps were created. COMPARISON: Brain MRI 11/16/2010, head CT 04/04/2021 FINDINGS: There is an old infarct in left temporal parietal occipital region. There is an acute infar ct in right thalamus. There is an old infarct in right cerebellum. There are old infarcts in the thal ami and frontal lobes. There are scattered areas of nonspecific increased T2-weighted signal intensit y in the cerebral and cerebellar white matter and gamaliel. There is no intracranial hemorrhage or abnorm al mass lesion. There is ex vacuo dilatation of trigone and occipital horn of left lateral ventricle. The orbits are normal. There is mucosal thickening in the paranasal sinuses. The mastoid air cells a re normal. IMPRESSION: 1. Acute infarct in right thalamus. 2. Old infarcts in the brain, worst in left temporal parietal occipital region. 3. Extensive nonspecific cerebral and cerebellar white matter disease and pontine disease, which like ly represents chronic small vessel ischemic disease. Reviewed, dictated and finalized at location B. NCILING CLERK IMPRESSION: 1. Acute infarct in right thalamus. 2. Old infarcts in the brain, worst in left temporal parietal occipital region. 3. Extensive nonspecific cerebral and cerebellar white matter disease and ponti ne disease, which likely represents chronic small vessel ischemic disease.
--- NOTE | ~2021-04-13 | CT_ITS ---
EXAMINATION: CTA LE RT DATE: 04/13/2021 18:06 INDICATION: Right leg pain, fibular fracture TECHNIQUE: Computed tomographic angiography (CTA) of the right lower extremity was performed with 150 mL Omnipaque-350 intravenous contrast. The dose-length product (DLP) was 833.93 mGy-cm. Maximum inte nsity projection 3D-reconstructions of the arteries were created by the technologist on a separate [employer] rkstation. Automated exposure control and iterative reconstruction technique were employed. COMPARISON: 04/04/2021 FINDINGS: ABDOMINAL AORTA AND ITS BRANCHES: The abdominal aorta is unremarkable without aneurysm or dissection. The celiac axis, superior mesente reza artery, and inferior mesenteric artery are normal. Single renal arteries are present. PELVIC VASCULATURE: There is mild calcified atherosclerosis without hemodynamically significant stenosis. RIGHT LOWER EXTREMITY VASCULATURE: The superficial femoral artery demonstrates minimal calcified atherosclerosis without hemodynamically significant stenosis. The profunda femoral artery is unremarkable. The popliteal artery is unremarka ble. There is minimal calcified atherosclerosis at the distal aspect of the otherwise normal posterio r tibial artery without hemodynamically significant stenosis. Minimal calcified atherosclerosis is no karri in the proximal and distal anterior tibial artery without hemodynamically significant stenosis. T he peroneal artery is unremarkable. There is a three-vessel runoff at the ankle. ADDITIONAL FINDINGS: There is an 8 mm cyst of the left hepatic lobe. The gallbladder and adrenal glands are normal. The ri ght kidney is unremarkable. No pathologically enlarged abdominal or pelvic lymph nodes are identified . A multiloculated cystic and solid mass of the left adnexa is again noted and not significantly cao ged. There is a complex an evolving intramuscular hematoma involving the right gluteus praveen muscle . There is heterogeneous enlargement of the muscles in the posterior compartment of the thigh. IMPRESSION: 1. Unremarkable CTA of the right lower extremity. 2. Complex evolving intramuscular hematoma involving the right gluteus rpaveen muscle and heterogeneo us enlargement of the muscles in the posterior compartment of the thigh, also likely evolving hematom a. Continued clinical follow-up is recommended with repeat imaging if necessary. 3. Complex left adnexal mass with differential as previously described. Pelvic MRI without and with c ontrast is recommended. Reviewed, dictated and finalized at location F. ESTIMATOR IMPRESSION: 1. Unremarkable CTA of the right lower extremity. 2. Complex evolving intramuscular hematoma involving the right gluteus praveen muscle and heterogeneous enlargement of the muscles in the posterior compartmen t of the thigh, also likely evolving hematoma. Continued clinical follow-up is recommended with repeat imaging if necessary. 3. Complex left adnexal mass with differential as previously described. Pelvic MRI without and with contrast is recommended.
--- NOTE | ~2021-04-13 | XR_ITS ---
EXAMINATION: XR knee RT min 4V DATE: 04/13/2021 19:36 INDICATION: History of right fibular fracture TECHNIQUE: Four views of the right knee were obtained. COMPARISON: 04/04/2021 FINDINGS: There is a healing fracture in the proximal tip of the fibula. An old oblique proximal fibu lar neck fracture is again noted. There is a small knee joint effusion. Joint spaces are normal with no erosions. No joint effusion/synovitis. Soft tissue swelling is again noted, better appreciated o n today's CT scan. IMPRESSION: 1. Subtle nondisplaced fracture of the proximal tip of the fibula without significant change. Reviewed, dictated and finalized at location F. GAGE LOAN CLOSER IMPRESSION: 1. Subtle nondisplaced fracture of the proximal tip of the fibula without signi ficant change.
--- NOTE | ~2021-04-13 | US_ITS ---
EXAMINATION: US venous doppler LE RT DATE: 04/13/2021 17:27 INDICATION: Right lower limb pain TECHNIQUE: Medrano scale images without and with compression and Doppler images of the right lower extre mity veins were obtained. COMPARISON: None FINDINGS: The right common femoral vein, profunda femoral vein, femoral vein, popliteal vein, peronea l trunk, posterior tibial veins, and greater saphenous vein are patent. IMPRESSION: 1. Patent right lower extremity veins. No evidence of deep venous thrombosis. Reviewed, dictated and finalized at location F. RVATIONS SALES AGENT
--- NOTE | 2021-04-13 15:17 | ED.LOWEXIN ---
HPI - Extremity Injury (Lower) General Chief Complaint: Extremity Injury, Lower Stated Complaint: R lower leg pain/swelling Time Seen by Provider: 04/13/21 15:11 Source: patient Limitations: clinical condition History of Present Illness HPI Narrative: Patient is a 75 yo female with a history of HTN, HLD, dementia presenting for evaluation of inability to walk following a fall. Pt reportedly fell, injuring her right leg. Patient was recently diagnosed with a fibular fracture, and was admitted to the hospitalist on April 04 with orthopedic consult who ultimately stated that this fibular fracture was nonoperative and signed off. Patient was seen by physical therapy/Occupational Therapy, ultimately was able to ambulate with the use of a walker. After reassessment orthopedic surgery, patient seemed to be quite comfortable with use of walker, oral pain medication. Patient was discharged with a walker and able to ambulate at time of discharge. Per [facility] staff, she has been unable to ambulate with walker today. She has more severe right leg pain. There is significant bruising. The extremity is warm. Due to patient's significant dementia, cannot obtain any history from the patient. She is awake, alert in room, does not seem to be in any acute distress. Patient has remained on her antiplatelet therapy. Related Data Home Medications Medication Instructions Recorded Confirmed citalopram 20 mg tablet 20 mg PO DAILY 05/21/19 04/04/21 memantine 10 mg tablet See Rx Instructions PO BID 05/21/19 04/04/21 olanzapine 5 mg tablet 5 mg PO .COMPLEX 05/21/19 04/04/21 rivastigmine tartrate 6 mg capsule 6 mg PO .COMPLEX 05/21/19 04/04/21 allopurinol 300 mg tablet 150 mg PO DAILY 03/11/21 04/04/21 ascorbate calcium (vitamin C) 500 500 mg PO DAILY 03/11/21 04/04/21 mg tablet hydroxyurea 500 mg capsule 500 mg PO DAILY 03/11/21 04/04/21 acetaminophen 650 mg PO Q6H PRN MDD pain 04/04/21 04/04/21 guaifenesin 200 mg PO Q6H PRN 04/04/21 04/04/21 hydroxyzine HCl 25 mg PO HS PRN 04/04/21 04/04/21 Allergies Allergy/AdvReac Type Severity Reaction Status Date / Time No Known Allergies Allergy Verified 04/04/21 17:22 Review of Systems Review of Systems: ROS unobtainable: Yes unobtainable due to medical condition PMFSH Past Medical History Medical History (Updated 04/13/21 @ 20:13 by Raquel Gordon MD) Anemia Closed fracture of fibula, proximal, right Dementia Depression Fall Hematoma of right lower leg History of CVA (cerebrovascular accident) HTN (hypertension) Hyperlipidemia Hypernatremia Pain Thrombocytosis Uterine mass Social History Social History Smoking status: Never smoker Alcohol intake: never Substance use: never Spiritual care concerns: No Exam Narrative: GENERAL: Awake, alert, nonsensical speech at time of assessment HEAD: Normocephalic, atraumatic. EYES: PERRLA and EOMI. ENT: Nares clear, no rhinorrhea or epistaxis. Mucous membranes moist. NECK: Supple. CHEST: No respiratory distress, breathing even and non labored HEART: Regular rate, sinus rhythm ABDOMEN:Non distended, non tender EXTREMITIES:PT with limited active ROM on the right side second to pain. Patient able to extend to 180 degrees, cannot complete active or passive flexion. Patient with extensive ecchymosis and edema of the right lower extremity which begins at the proximal right thigh. Tissue is taut overlying the posterior right thigh, has difficulty with flexion of the right knee.Normal capillary refill. DP pulse 2+. Extremity is warm, well-perfused. SKIN: Warm, dry, no rash. NEURO:No focal deficits. Pt awake, alert in room. Does not follow commands. Pt with severe dementia. Course Vital Signs Vital signs: Vital Signs Temperature 36.6 C 04/13/21 14:24 Pulse Rate 97 04/13/21 14:24 Respiratory Rate 18 04/13/21 14:24 Blood Pressure 140/60 04/13/21 14:24 Pulse Oximetry
[2021-04-13 16:30] LABS: Basophils Percent Auto 0.3 % (0.2-1.2); Eosinophils Percent Auto 0.2 % (0-4.4); Hematocrit 21.6 % (37.0-47.0); Immature Granulocyte Absolute 0.18 K/mm3 (0.00-0.031); Immature Granulocyte Percent A 1.9 % (0-0.5); Lymphocytes Absolute Auto 0.94 K/mm3 (0.9-3.2); Lymphocytes Percent Auto 10.1 % (18.3-44.2); Mean Corpuscular HGB Conc 30.6 g/dl (32-36); Mean Corpuscular Hemoglobin 31.6 pg (26-34); Mean Corpuscular Volume 103.3 fl (80-100); Monocytes Absolute Auto 0.8 K/mm3 (0.1-0.6); Monocytes Percent Auto 8.8 % (2.6-8.5); Neutrophils Absolute Auto 7.3 K/mm3 (1.3-6.7); Neutrophils Percent Auto 78.7 % (45.5-73.1); Platelet Count Result 939 k/mm3 (150-375); Red Blood Count 2.09 M/mm3 (4.2-5.4); Red Cell Distribution Width 20.1 % (11.5-14.5); White Blood Count 9.3 K/mm3 (4.5-10.0)
[2021-04-13 16:35] LABS: Hemoglobin 6.6 g/dL (12.0-15.0)
[2021-04-13 16:38] LABS: Anion Gap 7 mmol/L (8-16); Blood Urea Nitrogen 41 mg/dL (7-17); Calcium 8.1 mg/dL (8.4-10.2); Carbon Dioxide 29 mmol/L (22-30); Chloride 98 mmol/L (98-107); Estimated CRCL calculation 66 ml/min; Estimated Glomerular Filt Rate > 60; Glucose 198 mg/dL (65-110); Potassium 4.6 mmol/L (3.4-5.0); Sodium 134 mmol/L (137-145)
[2021-04-13 18:19] LABS: Add Urine Microscopic? YES; Appearance Urine Clear (Clear); Bacteria Urine 3+ /hpf; Bilirubin Urine Negative (Negative); Blood Urine Negative (Negative); Color Urine Yellow (Yellow); Glucose Urine UA Negative (Negative); Ketones Urine Negative (Negative); Leukocyte Esterase Ur Negative LEU/UL (Negative); Mucus Urine Rare /lpf; Nitrate Urine Positive (Negative); Protein Urine Negative (Negative); RBC Urine 0-2 /hpf (0-2); Specific Grav Ur 1.023 (1.001-1.035); Squamous Epithelial Cell Urine Few /hpf (Few)
[2021-04-13 20:57] LABS: Hematocrit 20.8 % (37.0-47.0); Hemoglobin 6.5 g/dL (12.0-15.0)
--- NOTE | 2021-04-13 20:58 | PM.IMHP ---
H&P: HPI History of Present Illness Date/Time: 04/13/21 20:58 Chief Complaint: Yes Narrative: This is a 75-year-old female, past medical history significant for advanced dementia, reactive thrombocytosis, hypertension, osteoporosis, iron deficiency anemia, patient resides at [facility]. Patient had a prior admission after she suffered a fall was found to have right proximal fibular nondisplaced fracture, nonoperable as per Ortho Service. Patient received supportive care and was discharged to rehabilitation services. Patient was brought back today after hematoma collection of right lower extremity with pain unable to ambulate. Of note patient is on dual anti-platelet therapy. Preliminary workup was significant for CT angio right lower extremity with complex evolving intramuscular hematoma formation but no active bleeding, CBC was significant for hemoglobin of 6.6, hematocrit of 21.6, platelet count 939,000, fibrinogen 200. Decision has been made to place the patient in observation for further evaluation, management and treatment. Review of Systems Review of Systems: Patient was brought for evaluation due to gait disturbance and lower extremity pain. ROS unobtainable: Yes unobtainable due to medical condition (Advanced dementia patient say yes repeatedly.) [facility] Past Medical History Medical History (Updated 04/13/21 @ 22:06 by Carlos Tejada MD) Anemia Closed fracture of fibula, proximal, right Dementia Depression Fall Hematoma of right lower leg History of CVA (cerebrovascular accident) HTN (hypertension) Hyperlipidemia Hypernatremia Pain Thrombocytosis Uterine mass Social History Social History Smoking status: Unknown if ever smoked Alcohol intake: never Substance use: never Spiritual care concerns: No Meds Home Medications and Allergies Home Medications Medication Instructions Recorded Confirmed Type citalopram 20 mg tablet 20 mg PO DAILY 05/21/19 04/04/21 History memantine 10 mg tablet See Rx Instructions PO BID 05/21/19 04/04/21 History olanzapine 5 mg tablet 5 mg PO .COMPLEX 05/21/19 04/04/21 History rivastigmine tartrate 6 mg capsule 6 mg PO .COMPLEX 05/21/19 04/04/21 History alendronate 70 mg tablet 70 mg PO .COMPLEX #4 tablet 11/25/19 04/04/21 Rx clopidogrel 75 mg tablet 75 mg PO .COMPLEX #90 tablet 04/30/20 04/04/21 Rx famotidine 20 mg tablet 20 mg PO .COMPLEX #90 tablet 04/30/20 04/04/21 Rx folic acid 1 mg tablet 1 mg PO .COMPLEX #90 tablet 04/30/20 04/04/21 Rx oxybutynin chloride 10 mg See Rx Instructions .ROUTE 04/30/20 04/04/21 Rx tablet,extended release 24 hr .COMPLEX #90 tablet simvastatin 10 mg tablet 10 mg PO .COMPLEX #90 tablet 04/30/20 04/04/21 Rx aspirin 81 mg chewable tablet See Rx Instructions .ROUTE 06/13/20 04/04/21 Rx .COMPLEX #28 tablet ferrous sulfate 325 mg (65 mg See Rx Instructions .ROUTE 06/13/20 04/04/21 Rx iron) tablet .COMPLEX #28 tablet guaifenesin 600 mg tablet, See Rx Instructions .ROUTE 06/13/20 04/04/21 Rx extended release 12 hr .COMPLEX #56 tablet loratadine 10 mg tablet See Rx Instructions .ROUTE 06/13/20 04/04/21 Rx .COMPLEX #28 tablet multivitamin-iron 9 mg-folic acid See Rx Instructions .ROUTE 06/13/20 04/04/21 Rx 400 mcg-calcium and minerals tablet .COMPLEX #28 tablet melatonin 5 mg tablet See Rx Instructions .ROUTE 08/13/20 04/04/21 Rx .COMPLEX #28 tablet cholecalciferol (vitamin D3) 50 See Rx Instructions .ROUTE 12/19/20 04/04/21 Rx mcg (2,000 unit) tablet .COMPLEX #90 tablet allopurinol 300 mg tablet 150 mg PO DAILY 03/11/21 04/04/21 History ascorbate calcium (vitamin C) 500 500 mg PO DAILY 03/11/21 04/04/21 History mg tablet hydroxyurea 500 mg capsule 500 mg PO DAILY 03/11/21 04/04/21 History acetaminophen 650 mg PO Q6H PRN MDD pain 04/04/21 04/04/21 History guaifenesin 200 mg PO Q6H PRN 04/04/21 04/04/21 History hydroxyzine HCl 25 mg PO HS PRN 04/04/21 04/04/21 History A
[2021-04-13 21:09] LABS: INR 1.3; Prothrombin Time 16.2 Seconds (11.1-14.7)
[2021-04-13 21:10] LABS: Partial Thromboplastin Time 37.8 SECONDS (22.3-36.8)
[2021-04-13 21:20] LABS: Fibrinogen 200 mg/dl (215-510)
--- NOTE | 2021-04-13 22:10 | ADMGEN ---
This patient, Chelsea Palomino, was admitted to [facility] Surg Room 322-01. Patient/family oriented to hospital policies and general routines including ID bracelet, bed and alarms, visiting hours, pain management, procedures, bathroom and other care routines, personal items, smoking policy, room service/diet, and visiting hours. Information on how to activate the Rapid Response Team has been discussed. Patient/Family are encouraged to report perceived risks to care and to ask questions if they do not understand what they are told or what they should do.
--- NOTE | 2021-04-13 22:18 | PC.NURSE ---
able to get blood consent from POA, verbal with ER guide changer as 2nd witness. placed in chart
[2021-04-13] MEDS: SODIUM CHLORIDE 0.9% IV 250 ML 30 ML IV CONT (22:23)
[2021-04-13] MEDS: TUBING, BLOOD PLUM PUMP TUBING 1 EACH XX (22:23)
[2021-04-14] VITALS (7 sets, daily range): BP systolic 124–135; BP diastolic 51–63; PULSE 81–85; RESP 15–18; TEMP 36.4–36.9; O2SAT 92–94
[2021-04-14 06:49] LABS: Hematocrit 25.5 % (37.0-47.0)
--- NOTE | 2021-04-14 09:45 | PCOTNOTE ---
Addendum entered by Geovanna Barbosa, OT 04/14/21 09:50: Pt. also on bedrest orders Original Note: Attempted to evaluated for occupational therapy. Unable to evaluate pt. at this time. Pt. is oriented x 0,and cannot follow directions, in attempt to mobilize pt. she began to become combative. Alerted nurse and INTEGRATION AIDE of pt. behavior and need for brief change.
--- NOTE | 2021-04-14 12:39 | PDONCCN ---
HPI - Date of Consult Date/Time: 04/14/21 12:39 Requesting Physician: Houston Oscar MD Primary Care Provider: Nino Dominguez MD - Consult Narrative Reason for consult: Thrombocytosis with right lower extremity hematoma Narrative: Chelsea Palomino is a 75 year old female with history of reactive thrombocytosis and advanced dementia with the longterm resident had prior admission due to the fall with resultant right proximal fibular nondisplaced fracture. She was discharged to the rehabilitation services. She came back into the ER last night with hematoma collection in the right lower extremity with pain and unable to ambulate. She was on dual anti-platelet therapy for thrombocytosis. Patient is a poor historian with her dementia. Labs showed hemoglobin of 6.6 with platelet count of [id number]. She received 1 unit of packed red blood cell with improvement in hemoglobin. Review of Systems - Review of Systems All systems reviewed & are unremarkable except as noted in HPI and [facility] Medical History: Medical History (Last Updated 04/13/21 @ 16:09 by Raquel Gordon MD) Anemia Closed fracture of fibula, proximal, right Dementia Depression Fall Hematoma of right lower leg History of CVA (cerebrovascular accident) HTN (hypertension) Hyperlipidemia Hypernatremia Pain Thrombocytosis Uterine mass - Social History Social History: Social History (Last Reviewed 04/13/21 @ 15:29 by Raquel Gordon MD) Alcohol Use: Alcohol intake: never Substance Use: Substance use: never Others: Spiritual care concerns: No Smoking Status: Smoking status: Unknown if ever smoked Meds Home Medications Medication Instructions Recorded Confirmed Type citalopram 20 mg tablet 20 mg PO DAILY 05/21/19 04/14/21 History memantine 10 mg tablet 10 mg PO BID 05/21/19 04/14/21 History olanzapine 5 mg tablet 5 mg PO HS 05/21/19 04/14/21 History rivastigmine tartrate 6 mg capsule 6 mg PO BID 05/21/19 04/14/21 History allopurinol 300 mg tablet 300 mg PO DAILY 03/11/21 04/14/21 History ascorbate calcium (vitamin C) 500 500 mg PO DAILY 03/11/21 04/14/21 History mg tablet hydroxyurea 500 mg capsule 500 mg PO DAILY 03/11/21 04/14/21 History acetaminophen 650 mg PO TID PRN MDD pain 04/04/21 04/14/21 History guaifenesin 200 mg PO Q6H PRN 04/04/21 04/14/21 History hydroxyzine HCl 25 mg PO HS PRN 04/04/21 04/14/21 History Thera-M 1 tablet DAILY 04/14/21 04/14/21 History alendronate [Fosamax] 70 mg PO WEEKLY 04/14/21 04/14/21 History aspirin 81 mg PO DAILY 04/14/21 04/14/21 History cholecalciferol (vitamin D3) 50 mcg DAILY 04/14/21 04/14/21 History [Vitamin D3] clopidogrel 75 mg PO DAILY 04/14/21 04/14/21 History famotidine 20 mg PO DAILY 04/14/21 04/14/21 History ferrous sulfate 325 mg PO BID 04/14/21 04/14/21 History folic acid 1 mg PO DAILY 04/14/21 04/14/21 History guaifenesin [Mucus Relief ER] 600 mg PO BID 04/14/21 04/14/21 History loratadine 10 mg PO DAILY 04/14/21 04/14/21 History melatonin 5 mg PO HS PRN 04/14/21 04/14/21 History oxybutynin chloride 10 mg PO DAILY 04/14/21 04/14/21 History simvastatin [Zocor] 10 mg PO HS 04/14/21 04/14/21 History Allergies Allergy/AdvReac Type Severity Reaction Status Date / Time No Known Allergies Allergy Verified 04/04/21 17:22 Results - Labs CBC & Chem 7: 04/14/21 06:08 04/13/21 16:02 Labs: Short CBC 04/13/21 04/13/21 04/14/21 Range/Units 16:02 20:43 06:08 WBC 9.3 (4.5-10.0) K/mm3 Hgb 6.6 L* 6.5 L* 8.0 L (12.0-15.0) g/dL Hct 21.6 L 20.8 L* 25.5 L (37.0-47.0) % Plt Count 939 H D (150-375) k/mm3 BMP 04/13/21 16:02 Sodium 134 L Potassium 4.6 Chloride 98 Carbon Dioxide 29 BUN 41 H D Creatinine 0.70 Glucose 198 H Calcium 8.1 L Urine 04/13/21 Range/Units 17:30 Urine Color Yellow (Yellow) Urine Appearance Clear (Clear) Urine pH 5.0 (5.0-9.0) Ur Specific [place]
[2021-04-14 14:46] LABS: Hemoglobin 8.5 g/dL (12.0-15.0)
[2021-04-14 15:15] LABS: Iron 23 ug/dL (37-170)
[2021-04-14] MEDS: AMINOCAPROIC ACID INJ 5,000 MG in DEXTROSE 5% IN WATER 250 ML 250 MG IVPB (15:19)
[2021-04-14 15:25] LABS: Percent Iron Saturation 11 % (20-50)
[2021-04-14 15:30] LABS: Fibrinogen 242 mg/dl (215-510)
[2021-04-14 16:10] LABS: Folic Acid > 20.0 ng/mL (2.76->20)
--- NOTE | 2021-04-14 18:30 | PM.IMPN ---
Progress Note: A&P Assessment and Plan (1) Acute blood loss anemia: Code(s): D62 - Acute posthemorrhagic anemia Status: Acute Assessment and Plan: Place in observation Vitals as per unit protocol Heart healthy diet Transfuse as needed Supportive care Hold antiplatelets Place in observation Vitals as per unit protocol Heart healthy diet Transfuse as needed Supportive care Hold antiplatelets (2) Hematoma of right lower leg: Code(s): S80.11XA - Contusion of right lower leg, initial encounter Status: Acute Assessment and Plan: Ice packs to the area Ice packs to the area (3) Closed fracture of fibula, proximal, right: Code(s): S82.831A - Other fracture of upper and lower end of right fibula, initial encounter for closed fracture Status: Acute Assessment and Plan: Non operable Supportive care Non operable Supportive care (4) Dementia: Code(s): F03.90 - Unspecified dementia without behavioral disturbance Status: Acute Assessment and Plan: Continue memantine Supportive care Continue memantine Supportive care (5) HTN (hypertension): Qualifiers: Hypertension type: essential hypertension Qualified Code(s): I10 - Essential (primary) hypertension Code(s): I10 - Essential (primary) hypertension Status: Acute Assessment and Plan: Restart home meds as needed Continue to monitor Restart home meds as needed Continue to monitor Additional Plan Right lower extremity hematoma. Patient has history of reactive thrombocytosis and was on dual anti-platelet therapy with anagrelide and aspirin. She came into the hospital with swelling and pain in the right lower extremity. Prior to that she had admission for right proximal fibular nondisplaced fracture status post fall. She was non operable per Ortho Service previously. I have reviewed the labs that showed elevated platelet count with significant anemia with hemoglobin of 6.5. I ordered PT and PTT the both came back slightly elevated and fibrinogen was low at 200. I have discussed this case with the ER physician. Recommended discontinuation of anti-platelet therapy as there is a risk of secondary von Willebrand's disease with extreme thrombocytosis. I will start her on Amicar 5 g bolus right now and then will repeat Q 8 hour until fibrinogen level is normal. Will repeat fibrinogen level in the morning as well. Anemia. I will check iron panel. Hemoglobin is improved after blood transfusion. Thrombocytosis. Continue to hold anti-platelet therapy due to hematoma and further risk of bleeding. 04/14/21 pt doing ok bruising appears stable home meds restarted Rocephin for UTI cont to monitor dc planning Subjective Date/time seen: 04/14/21 18:30 pt cooperative appears very demented home meds restarted Objective Data Vital Signs Vital Signs: Vital Signs - 24 hr 04/13/21 19:22 04/13/21 21:59 04/13/21 22:16 Temperature 98.3 F Pulse Rate 99 98 100 Respiratory Rate 18 16 16 Blood Pressure 127/60 136/105 H 159/69 H Pulse Oximetry 91 97 92 04/13/21 22:34 04/13/21 23:33 04/13/21 23:34 Temperature 99.0 F 98.5 F 98.5 F Pulse Rate 98 92 92 Respiratory Rate 16 17 17 Blood Pressure 147/64 H 134/50 L 134/50 L Pulse Oximetry 93 93 93 04/14/21 00:34 04/14/21 01:32 04/14/21 05:36 Temperature 98.0 F 98.5 F 97.6 F Pulse Rate 83 82 85 Respiratory Rate 16 15 18 Blood Pressure 135/63 126/59 L 124/59 L Pulse Oximetry 92 94 93 04/14/21 08:00 04/14/21 14:00 Temperature 98.2 F Pulse Rate 85 83 Respiratory Rate 18 16 Blood Pressure 128/63 Pulse Oximetry 93 93 Intake/Output Intake/Output: Intake & Output 04/11/21 04/12/21 04/13/21 04/14/21 23:59 23:59 23:59 23:59 Intake Total 50 590 Balance 50 590 Meds/Results Medications: Active Medications Generic Name Dose Route Start Last Admin Trade Name Freq PRN Reason Stop Dose Admin Acetamino
[2021-04-14] MEDS: guaiFENesin 12 HR 600 MG TABCR PO (22:08)
[2021-04-14] MEDS: RIVASTIGMINE TARTRATE 1.5 MG CAPSULE 6 MG PO (22:08)
[2021-04-14] MEDS: MEMANTINE 10 MG TABLET PO (22:08)
[2021-04-14] MEDS: FERROUS SULFATE 324 MG TABLET PO (22:08)
[2021-04-14] MEDS: SIMVASTATIN 10 MG TABLET PO (22:08)
[2021-04-15 06:00] VITALS: BP 132/65; PULSE 72; RESP 18; TEMP 36.4; O2SAT 93
[2021-04-15] MEDS: FERROUS SULFATE 324 MG TABLET PO ×2 (08:28→17:42)
[2021-04-15] MEDS: guaiFENesin 12 HR 600 MG TABCR PO ×2 (08:29→22:20)
[2021-04-15] MEDS: allopurinoL 300 MG TABLET PO (08:29)
[2021-04-15] MEDS: MEMANTINE 10 MG TABLET PO ×2 (08:29→22:20)
[2021-04-15] MEDS: LORATADINE 10 MG TABLET PO (08:29)
[2021-04-15] MEDS: FOLIC ACID 1 MG TABLET PO (08:29)
[2021-04-15] MEDS: FAMOTIDINE 20 MG TABLET PO (08:29)
[2021-04-15] MEDS: CITALOPRAM HYDROBROMIDE 20 MG TABLET PO (08:29)
[2021-04-15] MEDS: HYDROXYUREA (*CHEMO) 500 MG CAPSULE PO (08:29)
--- NOTE | 2021-04-15 08:29 | PCPTNOTE ---
Addendum entered by Chapis Bishop, PT, DPT 04/15/21 08:56: going to discharge orders at this time due to unwillingness to participate. If this status changes at a later time and she is more willing to be active, pleas place new therapy orders. Original Note: Physical therapy evaluation attempted this morning starting at 8:10AM. She was able to tell me that her pain was fine and when I asked questions of her birthday, her name, and how she is doing she kept telling me something unintelligible but consistent. She was not willing to participate with me in any activity today. We attempted rolling in bed, we attempted AROM and PROM in bed. She allowed me to perform passive ROM of left LE, was resisted to right LE ROM, and with some coaxing performing UE ROM. She was otherwise unwilling to sit up in bed and kept shaking her head at me without verbal response. When I assisted to adjust her position in bed with total assist she said that's enough several times. At this time it does not seem that she is appropriate for physical therapy due to unwillingness to participate. She does seem quite resistive to participating at this time.
[2021-04-15] MEDS: RIVASTIGMINE TARTRATE 1.5 MG CAPSULE 6 MG PO ×2 (08:30→22:20)
--- NOTE | 2021-04-15 09:07 | PCOTNOTE ---
Physical Therapy attempted to evaluate pt. today with similar outcome to occupational therapy's attempt yesterday. Occupational therapy attempted to evaluate. Pt. was unable to correctly answer orientation questions, repeatedly saying one indistinguishable word. Pt. could not follow verbal or visual directions with modeling. Attempted to get pt. to sitting EOB, pt. gripped onto bed and loudly expressed another indistinguishable word and threw her arms angrily at OT. Pt. does not appear appropriate for therapy at this time due to unwillingness to participate, limited comprehension, and PLOF with fpc care. Occupational therapy is going to discharge orders at this time due to unwillingness to participate. If this status changes at a later time and she is more willing to be active, please place new therapy orders.
[2021-04-15 14:00] VITALS: BP 140/71; PULSE 98; RESP 18; TEMP 36.9; O2SAT 93
[2021-04-15 14:22] LABS: Basophils Absolute Auto 0.1 K/mm3 (0.0-0.1); Basophils Percent Auto 0.6 % (0.2-1.2); Eosinophils Absolute Auto 0.1 K/mm3 (0-0.3); Eosinophils Percent Auto 1.1 % (0-4.4); Hematocrit 28.1 % (37.0-47.0); Immature Granulocyte Absolute 0.19 K/mm3 (0.00-0.031); Immature Granulocyte Percent A 2.2 % (0-0.5); Lymphocytes Absolute Auto 0.72 K/mm3 (0.9-3.2); Lymphocytes Percent Auto 8.4 % (18.3-44.2); Mean Corpuscular Hemoglobin 31.4 pg (26-34); Mean Corpuscular Volume 97.9 fl (80-100); Mean Platelet Volume 9.7 fl (7.4-10.4); Monocytes Absolute Auto 0.6 K/mm3 (0.1-0.6); Monocytes Percent Auto 6.8 % (2.6-8.5); Neutrophils Absolute Auto 6.9 K/mm3 (1.3-6.7); Neutrophils Percent Auto 80.9 % (45.5-73.1); Platelet Count Result 983 k/mm3 (150-375); Red Blood Count 2.87 M/mm3 (4.2-5.4); Red Cell Distribution Width 19.9 % (11.5-14.5); White Blood Count 8.5 K/mm3 (4.5-10.0)
[2021-04-15 14:32] LABS: Magnesium 2.3 mg/dL (1.6-2.3)
[2021-04-15 14:36] LABS: Fibrinogen 238 mg/dl (215-510)
[2021-04-15 14:38] LABS: Alanine Aminotransferase 27 U/L (4-35); Albumin Level 3.4 g/dL (3.5-5.1); Alkaline Phosphatase 110 U/L (38-126); Anion Gap 5 mmol/L (8-16); Aspartate Amino Transferase 43 U/L (14-36); Bilirubin,Total 0.7 mg/dL (0.2-1.3); Blood Urea Nitrogen 19 mg/dL (7-17); Calcium 8.2 mg/dL (8.4-10.2); Carbon Dioxide 28 mmol/L (22-30); Chloride 101 mmol/L (98-107); Estimated CRCL calculation 58 ml/min; Estimated Glomerular Filt Rate > 60; Glucose 131 mg/dL (65-110); Potassium 4.2 mmol/L (3.4-5.0); Sodium 134 mmol/L (137-145)
--- NOTE | 2021-04-15 19:47 | PM.IMPN ---
Progress Note: A&P Assessment and Plan (1) Acute blood loss anemia: Code(s): D62 - Acute posthemorrhagic anemia Status: Acute Assessment and Plan: Place in observation Vitals as per unit protocol Heart healthy diet Transfuse as needed Supportive care Hold antiplatelets Place in observation Vitals as per unit protocol Heart healthy diet Transfuse as needed Supportive care Hold antiplatelets (2) Hematoma of right lower leg: Code(s): S80.11XA - Contusion of right lower leg, initial encounter Status: Acute Assessment and Plan: Ice packs to the area Ice packs to the area (3) Closed fracture of fibula, proximal, right: Code(s): S82.831A - Other fracture of upper and lower end of right fibula, initial encounter for closed fracture Status: Acute Assessment and Plan: Non operable Supportive care Non operable Supportive care (4) Dementia: Code(s): F03.90 - Unspecified dementia without behavioral disturbance Status: Acute Assessment and Plan: Continue memantine Supportive care Continue memantine Supportive care (5) HTN (hypertension): Qualifiers: Hypertension type: essential hypertension Qualified Code(s): I10 - Essential (primary) hypertension Code(s): I10 - Essential (primary) hypertension Status: Acute Assessment and Plan: Restart home meds as needed Continue to monitor Restart home meds as needed Continue to monitor Additional Plan Right lower extremity hematoma. Patient has history of reactive thrombocytosis and was on dual anti-platelet therapy with anagrelide and aspirin. She came into the hospital with swelling and pain in the right lower extremity. Prior to that she had admission for right proximal fibular nondisplaced fracture status post fall. She was non operable per Ortho Service previously. I have reviewed the labs that showed elevated platelet count with significant anemia with hemoglobin of 6.5. I ordered PT and PTT the both came back slightly elevated and fibrinogen was low at 200. I have discussed this case with the ER physician. Recommended discontinuation of anti-platelet therapy as there is a risk of secondary von Willebrand's disease with extreme thrombocytosis. I will start her on Amicar 5 g bolus right now and then will repeat Q 8 hour until fibrinogen level is normal. Will repeat fibrinogen level in the morning as well. Anemia. I will check iron panel. Hemoglobin is improved after blood transfusion. Thrombocytosis. Continue to hold anti-platelet therapy due to hematoma and further risk of bleeding. 04/14/21 pt doing ok bruising appears stable home meds restarted Rocephin for UTI cont to monitor dc planning 04/15/21 MRI increase hydroxyurea for secondary erthyrocytosis cont Rocephin urine culture ordered hold dc planning for now Subjective Date/time seen: 04/15/21 19:47 appears more alert unclear if pt has a component of expressive aphasia or if purely dementia related, case reviewed w RN Exam Narrative: GEN: NAD, AAOx1, cooperative HEENT: NCAT, MMM, EOMI Neck: no JVD Heart: S1S2 RRR Lungs: CTA B/l Abd: soft, NT, ND, bowel sounds normoactive Ext: moves all, no cyanosis, no clubbing, significant ecchymosis over R leg Neuro: CN intact, moves all extremities no focal deficit appreciated Psych: teeth smacking/biting pt confused minimally verbal 1-2 words Objective Data Vital Signs Vital Signs: Vital Signs - 24 hr 04/14/21 20:00 04/14/21 22:00 04/15/21 06:00 Temperature 98.1 F 97.5 F L Pulse Rate 81 72 Respiratory Rate 18 18 Blood Pressure 125/51 L 132/65 Pulse Oximetry 93 93 93 04/15/21 14:00 Temperature 98.4 F Pulse Rate 98 Respiratory Rate 18 Blood Pressure 140/71 Pulse Oximetry 93 Intake/Output Intake/Output: Intake & Output 04/12/21 04/13/21 04/14/21 04/15/21 23:59 23:59 23:59 23:59 Intake Total 50 1000 1000 Balance 50 100
[2021-04-15 20:00] VITALS: PULSE 96; RESP 16; O2SAT 94
[2021-04-15 21:24] VITALS: BP 136/75; PULSE 96; RESP 16; TEMP 36.7; O2SAT 94
[2021-04-15] MEDS: MELATONIN 5 MG TABLET PO (22:20)
[2021-04-15] MEDS: SIMVASTATIN 10 MG TABLET PO (22:21)
[2021-04-16 06:28] VITALS: BP 145/57; PULSE 89; RESP 18; TEMP 36.6; O2SAT 91
[2021-04-16 07:42] LABS: Basophils Absolute Auto 0.1 K/mm3 (0.0-0.1); Basophils Percent Auto 0.8 % (0.2-1.2); Eosinophils Absolute Auto 0.1 K/mm3 (0-0.3); Eosinophils Percent Auto 1.2 % (0-4.4); Hematocrit 27.3 % (37.0-47.0); Hemoglobin 8.5 g/dL (12.0-15.0); Immature Granulocyte Absolute 0.14 K/mm3 (0.00-0.031); Immature Granulocyte Percent A 1.8 % (0-0.5); Lymphocytes Absolute Auto 0.68 K/mm3 (0.9-3.2); Mean Corpuscular HGB Conc 31.1 g/dl (32-36); Mean Corpuscular Hemoglobin 30.8 pg (26-34); Mean Corpuscular Volume 98.9 fl (80-100); Mean Platelet Volume 9.6 fl (7.4-10.4); Monocytes Absolute Auto 0.6 K/mm3 (0.1-0.6); Monocytes Percent Auto 8.4 % (2.6-8.5); Neutrophils Percent Auto 78.8 % (45.5-73.1); Platelet Count Result 804 k/mm3 (150-375); Red Blood Count 2.76 M/mm3 (4.2-5.4); White Blood Count 7.6 K/mm3 (4.5-10.0)
[2021-04-16 07:54] LABS: Anion Gap 3 mmol/L (8-16); Blood Urea Nitrogen 17 mg/dL (7-17); Calcium 8.1 mg/dL (8.4-10.2); Carbon Dioxide 28 mmol/L (22-30); Chloride 104 mmol/L (98-107); Creatine Kinase 32 U/L (30-135); Estimated CRCL calculation 50 ml/min; Estimated Glomerular Filt Rate > 60; Glucose 110 mg/dL (65-110); Sodium 135 mmol/L (137-145)
[2021-04-16 08:00] VITALS: O2SAT 93
[2021-04-16 08:32] LABS: Fibrinogen 184 mg/dl (215-510)
[2021-04-16] MEDS: RIVASTIGMINE TARTRATE 1.5 MG CAPSULE 6 MG PO ×2 (08:59→21:21)
[2021-04-16] MEDS: FOLIC ACID 1 MG TABLET PO (08:59)
[2021-04-16] MEDS: FAMOTIDINE 20 MG TABLET PO (09:00)
[2021-04-16] MEDS: HYDROXYUREA (*CHEMO) 500 MG CAPSULE PO ×2 (09:00→18:04)
[2021-04-16] MEDS: LORATADINE 10 MG TABLET PO (09:00)
[2021-04-16] MEDS: FERROUS SULFATE 324 MG TABLET PO ×2 (09:00→18:03)
[2021-04-16] MEDS: CITALOPRAM HYDROBROMIDE 20 MG TABLET PO (09:00)
[2021-04-16] MEDS: MEMANTINE 10 MG TABLET PO ×2 (09:00→21:21)
[2021-04-16] MEDS: allopurinoL 300 MG TABLET PO (09:00)
[2021-04-16] MEDS: guaiFENesin 12 HR 600 MG TABCR PO ×2 (09:00→21:21)
[2021-04-16 14:00] VITALS: BP 128/60; PULSE 96; RESP 18; TEMP 37.3; O2SAT 90
[2021-04-16 15:05] LABS: EDCOVIDSCREEN Negative (Negative)
--- NOTE | 2021-04-16 16:06 | PM.IMPN ---
Progress Note: A&P Assessment and Plan (1) Hematoma: Code(s): T14.8XXA - Other injury of unspecified body region, initial encounter Status: Acute (2) Acute blood loss anemia: Code(s): D62 - Acute posthemorrhagic anemia Status: Acute Assessment and Plan: Place in observation Vitals as per unit protocol Heart healthy diet Transfuse as needed Supportive care Hold antiplatelets Place in observation Vitals as per unit protocol Heart healthy diet Transfuse as needed Supportive care Hold antiplatelets (3) Anemia: Code(s): D64.9 - Anemia, unspecified Status: Acute (4) Urinary tract infection: Code(s): N39.0 - Urinary tract infection, site not specified Status: Acute (5) Pain: Code(s): R52 - Pain, unspecified Status: Acute (6) Thrombocytosis: Code(s): D47.3 - Essential (hemorrhagic) thrombocythemia Status: Acute (7) HTN (hypertension): Qualifiers: Hypertension type: essential hypertension Qualified Code(s): I10 - Essential (primary) hypertension Code(s): I10 - Essential (primary) hypertension Status: Acute Assessment and Plan: Restart home meds as needed Continue to monitor Restart home meds as needed Continue to monitor (8) Hyperlipidemia: Qualifiers: Hyperlipidemia type: mixed hyperlipidemia Qualified Code(s): E78.2 - Mixed hyperlipidemia Code(s): E78.5 - Hyperlipidemia, unspecified Status: Acute (9) Dementia: Code(s): F03.90 - Unspecified dementia without behavioral disturbance Status: Acute Assessment and Plan: Continue memantine Supportive care Continue memantine Supportive care (10) Closed fracture of fibula, proximal, right: Code(s): S82.831A - Other fracture of upper and lower end of right fibula, initial encounter for closed fracture Status: Acute Assessment and Plan: Non operable Supportive care Non operable Supportive care (11) Fall: Code(s): W19.XXXA - Unspecified fall, initial encounter Status: Acute (12) Hematoma of right lower leg: Code(s): S80.11XA - Contusion of right lower leg, initial encounter Status: Acute Assessment and Plan: Ice packs to the area Ice packs to the area (13) Acute thalamic infarction: Code(s): I63.9 - Cerebral infarction, unspecified Status: Acute Additional Plan Right lower extremity hematoma. Patient has history of reactive thrombocytosis and was on dual anti-platelet therapy with anagrelide and aspirin. She came into the hospital with swelling and pain in the right lower extremity. Prior to that she had admission for right proximal fibular nondisplaced fracture status post fall. She was non operable per Ortho Service previously. I have reviewed the labs that showed elevated platelet count with significant anemia with hemoglobin of 6.5. I ordered PT and PTT the both came back slightly elevated and fibrinogen was low at 200. I have discussed this case with the ER physician. Recommended discontinuation of anti-platelet therapy as there is a risk of secondary von Willebrand's disease with extreme thrombocytosis. I will start her on Amicar 5 g bolus right now and then will repeat Q 8 hour until fibrinogen level is normal. Will repeat fibrinogen level in the morning as well. Anemia. I will check iron panel. Hemoglobin is improved after blood transfusion. Thrombocytosis. Continue to hold anti-platelet therapy due to hematoma and further risk of bleeding. 04/14/21 pt doing ok bruising appears stable home meds restarted Rocephin for UTI cont to monitor dc planning 04/15/21 MRI increase hydroxyurea for secondary erthyrocytosis cont Rocephin urine culture ordered hold dc planning for now 04/16/21 new CVA advanced dementia poor functional status hospice recommended to care takers agree to return to her NH under hospice care Dye
[2021-04-16 20:00] VITALS: PULSE 110; RESP 20; O2SAT 91
[2021-04-16 21:15] VITALS: BP 144/71; PULSE 110; RESP 20; TEMP 36.8; O2SAT 91
[2021-04-16] MEDS: SIMVASTATIN 10 MG TABLET PO (21:22)
[2021-04-17 04:34] VITALS: BP 123/69; PULSE 102; RESP 12; TEMP 36.1; O2SAT 91
[2021-04-17 08:00] VITALS: O2SAT 91
[2021-04-17] MEDS: MEMANTINE 10 MG TABLET PO (08:34)
[2021-04-17] MEDS: FOLIC ACID 1 MG TABLET PO (08:34)
[2021-04-17] MEDS: LORATADINE 10 MG TABLET PO (08:34)
[2021-04-17] MEDS: guaiFENesin 12 HR 600 MG TABCR PO (08:34)
[2021-04-17] MEDS: CITALOPRAM HYDROBROMIDE 20 MG TABLET PO (08:34)
[2021-04-17] MEDS: allopurinoL 300 MG TABLET PO (08:34)
[2021-04-17] MEDS: HYDROXYUREA (*CHEMO) 500 MG CAPSULE PO (08:34)
[2021-04-17] MEDS: hydrOXYzine HCL 25 MG TABLET PO (08:34)
[2021-04-17] MEDS: RIVASTIGMINE TARTRATE 1.5 MG CAPSULE 6 MG PO (08:35)
[2021-04-17] MEDS: FAMOTIDINE 20 MG TABLET PO (08:35)
[2021-04-17] MEDS: FERROUS SULFATE 324 MG TABLET PO (08:35)
[2021-04-17 14:00] VITALS: BP 120/70; PULSE 95; RESP 20; TEMP 36.4; O2SAT 90
--- NOTE | 2021-04-17 14:35 | PM.DS ---
DS: Admitting Diagnosis Discharge Date 04/17/21 Admitting Diagnosis AMS DS: Discharge Diagnosis Discharge Diagnosis (1) Hematoma: Code(s): T14.8XXA - Other injury of unspecified body region, initial encounter Status: Acute (2) Acute blood loss anemia: Code(s): D62 - Acute posthemorrhagic anemia Status: Acute (3) Anemia: Code(s): D64.9 - Anemia, unspecified Status: Acute (4) Urinary tract infection: Code(s): N39.0 - Urinary tract infection, site not specified Status: Acute (5) Pain: Code(s): R52 - Pain, unspecified Status: Acute (6) Thrombocytosis: Code(s): D47.3 - Essential (hemorrhagic) thrombocythemia Status: Acute (7) HTN (hypertension): Qualifiers: Hypertension type: essential hypertension Qualified Code(s): I10 - Essential (primary) hypertension Code(s): I10 - Essential (primary) hypertension Status: Acute (8) Hyperlipidemia: Qualifiers: Hyperlipidemia type: mixed hyperlipidemia Qualified Code(s): E78.2 - Mixed hyperlipidemia Code(s): E78.5 - Hyperlipidemia, unspecified Status: Acute (9) Dementia: Code(s): F03.90 - Unspecified dementia without behavioral disturbance Status: Acute (10) Closed fracture of fibula, proximal, right: Code(s): S82.831A - Other fracture of upper and lower end of right fibula, initial encounter for closed fracture Status: Acute (11) Fall: Code(s): W19.XXXA - Unspecified fall, initial encounter Status: Acute (12) Hematoma of right lower leg: Code(s): S80.11XA - Contusion of right lower leg, initial encounter Status: Acute (13) Acute thalamic infarction: Code(s): I63.9 - Cerebral infarction, unspecified Status: Acute DS: Summary Hospital Course Reason for hospitalization: Altered mental status Hospital Course: 75-year-old female with advanced dementia resides at a memory care unit dose brought to the emergency room after she is found to be with acute worsening confusion. Urinalysis was consistent with urinary tract infection and patient was treated with Rocephin empirically and received 3 days. Final urine culture failed to grow any bacteria however this was collected on her 3rd day of hospitalization. He additionally MRI was performed and patient was found to have suffered an acute thalamic stroke. Imaging revealed multiple old strokes in addition to this acute event. Given patient's recurrent strokes, advanced dementia, newly diagnosed right lower extremity fracture and large hematoma with inability to ambulate safely. Quality of life and functional/mental decline were discussed w caregivers and it was decided in the best interest of Chelsea mckoy to return to her prior residence with hospice care. Status at Discharge Functional status at discharge: bed bound Overall status at discharge: patient is not back to baseline Time Spent with Patient Time attestation: Total time spent providing and/or coordinating discharge services: Time spent: Greater than 30 minutes Exam Narrative: GEN: NAD, Alert, cooperative HEENT: NCAT, MMM, EOMI Neck: no JVD Ext: moves all, no cyanosis, no clubbing, significant ecchymosis over R leg Neuro: CN intact, moves all extremities no focal deficit appreciated DS: Data Data Completed and Pending Labs on day of discharge: Labs from last 24 hours 04/16/21 04/16/21 04/16/21 07:13 07:13 07:13 WBC 7.6 RBC 2.76 L Hgb 8.5 L Hct 27.3 L MCV 98.9 MCH 30.8 MCHC 31.1 L RDW 20.0 H Plt Count 804 H MPV 9.6 Immature Gran % (Auto) 1.8 H Neut % (Auto) 78.8 H Lymph % (Auto) 9.0 L Pike % (Auto) 8.4 Eos % (Auto) 1.2 Baso % (Auto) 0.8 Lymph # (Auto) 0.68 L Pike # (Auto) 0.6 Eos # (Auto) 0.1 Baso # (Auto) 0.1 Abs Immat Gran (auto) 0.14 H Absolute Neuts (auto) 6.0 Absolute Nucleated RBC 0.0 Nucleat
== END 2021-04-17 15:45 | disposition hospice, home (50) | DRG 604 ==
LOC: ANHED 20:13 → ANH3MEDSUR 21:40
PROVIDERS: Hospitalist; Internal Medicine Hematology & Oncology; Admitting Provider Internal Medicine; Emergency Provider Emergency Medicine; PCP Emergency Medicine; Visit Provider Internal Medicine
DX: S80.11XA Contusion of right lower leg, initial encounter (principal); I63.9 Cerebral infarction, unspecified; D62 Acute posthemorrhagic anemia; N39.0 Urinary tract infection, site not specified; S82.831A Other fracture of upper and lower end of right fibula, initial encounter for closed fracture; W19.XXXA Unspecified fall, initial encounter; F03.90 Unspecified dementia, unspecified severity, without behavioral disturbance, psychotic disturbance, mood disturbance, and anxiety; Z20.822 Contact with and (suspected) exposure to COVID-19; F32.A Depression, unspecified; E78.5 Hyperlipidemia, unspecified; D75.838 Other thrombocytosis; I10 Essential (primary) hypertension; M81.0 Age-related osteoporosis without current pathological fracture; Z86.73 Personal history of transient ischemic attack (TIA), and cerebral infarction without residual deficits; Z79.82 Long term (current) use of aspirin; Z79.02 Long term (current) use of antithrombotics/antiplatelets
CPT/HCPCS: 36415; 36430; 70551; 72197; 73564; 73706; 80048; 80053; 81001; 82550; 82607; 82728; 82746; 83540; 83550; 83735; 85014; 85018; 85025; 85384; 85610; 85730; 86850; 86900; 86901; 86920; 87086; 87426; 93971; 96365; 97163; 99285; A9270; A9577; C9803; J0696; J7050; J7060; P9016; Q9967